=== PATIENT | male | born 1945 | race African-American/Black ===

== ENCOUNTER 2019-01-29 16:16 | Inpatient (IN) | payer OTHER ==
[2019-01-29 16:51] LABS: Bilirubin Negative (Negative); Blood, Urine Negative (Negative); Glucose, Urine (Dipstick) Negative (Negative); Leukocyte Negative (Negative); Nitrite Negative (Negative); Protein, Urine (Dipstick) Negative (Neg-Trace); Urobilinogen 0.2 mg/dL (Less than 2)
[2019-01-29 16:52] LABS: Clarity Clear (Clear)
[2019-01-29 16:56] LABS: Hemoglobin 6.2 g/dL (14.0-18.0); Mean Corpuscular HGB CONC 33.3 g/dL (32.0-36.0); Mean Corpuscular Hemoglobin 32.8 pg (27.0-31.0); Mean Corpuscular Volume 98.3 fL (78.0-98.0); Red Blood Cell (RBC) Count 1.88 mill/uL (4.70-6.10); White Blood Cell (WBC) Count 8.6 thou/uL (4.8-10.8)
--- NOTE | 2019-01-29 16:57 | RAD ---
SINGLE VIEW OF THE CHEST: Comparison: 06-21-10 History: Chest pain with exertion. FINDINGS: Single view of the chest shows an enlarged cardiomediastinal silhouette. The patient is status post s ternotomy. A pacemaker is seen with its tip in the right ventricle. There is no evidence of consolida tion, mass, or pleural effusion. IMPRESSION: Cardiomegaly. POS: C
[2019-01-29 17:01] LABS: INR-International Normal Ratio 3.4; PTT 43.2 SEC (22.9-36.1); Prothrombin Time 34.1 SEC (12.0-14.7)
[2019-01-29 17:23] LABS: ALT (SGPT) 10 U/L (8-55); AST (SGOT) 16 U/L (5-34); Albumin 3.5 g/dL (3.4-4.8); Alkaline Phosphatase 128 U/L (40-150); Anion Gap 10 mmol/L (10-20); BUN (Urea Nitrogen) 30 mg/dL (8.4-25.7); Bilirubin, Total 0.3 mg/dL (0.2-1.2); CK (CPK) 233 U/L (30-200); Calc. Creatinine Clearance 0 mL/min (70-130); Calcium 8.4 mg/dL (7.8-10.44); Carbon Dioxide 24 mmol/L (23-31); Chloride 103 mmol/L (98-107); Estimated GFR-MDRD 60; Globulin 3.1 g/dL (2.4-3.5); Glucose 122 mg/dL (83-110); Lipase 45 U/L (8-78); Potassium 3.4 mmol/L (3.5-5.1); Protein, Total 6.6 g/dL (5.8-8.1); Sodium 134 mmol/L (136-145)
[2019-01-29 17:31] LABS: #Eosinphils 0.2 thou/uL (0.0-0.7); #Lymphocytes 1.4 thou/uL (1.20-3.40); #Monocytes 0.7 thou/uL (0.11-0.59); #Neutrophils 6.3 thou/uL (1.40-6.50); %Basophils 0.4 % (0.0-1.0); %Eosinophils 2.1 % (0.0-10.0); %Lymphocytes 16.4 % (21.0-51.0); %Monocytes 7.8 % (0.0-10.0); %Neutrophils 73.4 % (42.0-75.0); Anisocytosis SLIGHT = 6-15 cells (100X) (0-5/hpf); Band 1 % (5-11); Eosinophils 2 % (0-10); Lymphocytes 5 % (21-51); MDiff Complete? YES; Mean Platelet Volume 7.1 fL (7.4-10.4); Monocytes 2 % (0-10); Neutrophil 90 % (42-75); Platelet Count 116 thou/uL (130-400); Platelet Morphology Comment Appears Decreased
[2019-01-29] MEDS ORDERED: Ondansetron PF 4 MG/2 ML Vial ONE (18:37)
[2019-01-29] MEDS ORDERED: Morphine 4 MG/ML VIAL ONE (18:37)
[2019-01-29 20:47] LABS: Troponin I Less than 0.010 ng/mL (< 0.028)
--- NOTE | 2019-01-29 20:49 | PDOC.FPRHP ---
- History of Present Illness Chief Complaint: Chest Pain History of Present Illness: 73 yo M says he woke up with worsening chest pain. He says he has been experiencing constant, heavy, throbbing chest pain for the past month, but this morning it worsened with radiation to the neck and left arm. He says his chest pain is 7/10 [address] he says the chest pain worsens. It is alleviated with rest. He is on medication, but he says they help very little. He does experience SOB with the chest pain. He has had blood in his stool over the last 2 years with 2-3 episodes spread months apart. Yesterday he says he had an episode of a large amount of blood, about a cup, in his stool and he has been having diarrhea since yesterday. Two years ago he had blood loss so severe that he recieved 4 units. He was seen by GI in [place] in July. He says they preformed a colonoscopy and EGD, but they did not find the source of bleeding. FOBT was positive. ED Course: In ED, he had a Hgb/Hct of 6.2/18.5. They are giving him 2 units of blood in the ED. Troponins in ED were negative. EKG shows Afib with controlled rate along with T wave inversion in V1 & V2. - Allergies/Adverse Reactions Allergies Allergy/AdvReac Type Severity Reaction Status Date / Time No Known Allergies Allergy Verified 01/29/19 23:31 - Home Medications Medication Instructions Recorded Confirmed Type Aspirin [Aspir-Low] 81 mg PO DAILY 01/29/19 01/29/19 History Atorvastatin Calcium [Lipitor] 40 mg PO HS 01/29/19 01/29/19 History Carvedilol 6.25 mg PO BID 01/29/19 01/29/19 History DULoxetine HCl 30 mg PO HS 01/29/19 01/29/19 History Ferrous Sulfate [Feosol] 325 mg PO TID 01/29/19 01/29/19 History Furosemide [Lasix] 40 mg PO BID 01/29/19 01/29/19 History Isosorbide Mononitrate [Isosorbide 60 mg PO DAILY 01/29/19 01/29/19 History Mononitrate ER] Lactulose 10 GM/15ML Oral Aleena 60 gm PO BID 01/29/19 01/29/19 History [Lactulose] Latanoprost/Pf [Latanoprost 0.005% 1 drop OP DAILY 01/29/19 01/29/19 History Eye Drop] Methylcellulose [Fiber Laxative] 1,000 mg PO DAILY 01/29/19 01/29/19 History Nitroglycerin 0.4 mg SL Q6HR 01/29/19 01/29/19 History Omeprazole 40 mg PO DAILY 01/29/19 01/29/19 History Probenecid 500 mg PO BID 01/29/19 01/29/19 History Spironolactone 25 mg PO DAILY 01/29/19 01/29/19 History Terazosin HCl 10 mg PO HS 01/29/19 01/29/19 History Timolol Maleate [Timolol Maleate 1 drop EA EYE BID 01/29/19 01/29/19 History 0.5% Ophth SolN] Warfarin Sodium 2.5 mg PO DAILY 01/29/19 01/29/19 History - History PMHx: ZECHARIAH, A fib, BPH, CHF, Glaucoma PSHx: Cath 2016, Double Bypass 2016, Remote hx of stents x2, Galbladder 10 years ago, Pacemaker 2016 FHx: Mom- GARRIDO (76, ), Sister & Dad- DM Social: No smoking, alcohol, or illicit drugs. - Review of Systems General: denies: fever/chills, night sweats Eyes: denies: vision changes ENT: denies: rhinorrhea Respiratory: reports: shortness of breath, exercise intolerance. denies: cough Cardiovascular: reports: chest pain. denies: paroxysmal nocturnal dyspnea, orthopnea Gastrointestinal: reports: diarrhea, GI bleeding. denies: nausea, vomiting, constipation, abdominal pain Genitourinary: denies: dysuria Skin: denies: rashes, lesions Musculoskeletal: denies: pain, tenderness Neurological: denies: numbness, weakness Psychological: denies: anxiety - Vital signs BP: [120/50] HR: [52] RR: [16] Tmax: [98.5] Pox: [100]% on [2L] Wt: [118 kg] - Physical Exam Constitutional: NAD HEENT: normocephalic and atraumatic, PERRLA, grossly normal vision, grossly normal hearing, oropharynx clear, other (mucous membranes slightly dry) Neck: supple, trachea midline Chest: no-tender to palpation Heart: normal S1/S2, pulses present -Heart: Heart rate was in the 50s. His pacer is set to 50. Lungs: CTAB, no respiratory distress, good air movement Abdomen: soft, non-tender, bowel sounds present Musculoskeletal: normal structure, normal tone Neurological: no focal deficit Skin: no rash/lesions, good turgor Heme/Lymphatic: no unusual bruising or bleeding Psychiatric: normal mood and affect Additional comment: FOBT preformed was positive. FMR H&P: Results - Labs Result Diagrams: 01/29/19 16:40 01/29/19 16:40 Lab results: WBC 8.6 thou/uL (4.8-10.8) 01/29/19 16:40 Hgb 6.2 g/dL (14.0-18.0) L 01/29/19 16:40 Hct 18.5 % (42.0-52.0) L 01/29/19 16:40 MCV 98.3 fL (78.0-98.0) H 01/29/19 16:40 Plt Count 116 thou/uL (130-400) L 01/29/19 16:40 Neutrophils % 73.4 % (42.0-75.0) 01/29/19 16:40 Band Neuts % (Manual) 1 % (5-11) L 01/29/19 16:40 Sodium 134 mmol/L (136-145) L 01/29/19 16:40 Potassium 3.4 mmol/L (3.5-5.1) L 01/29/19 16:40 Chloride 103 mmol/L (98-107) 01/29/19 16:40 Carbon Dioxide 24 mmol/L (23-31) 01/29/19 16:40 BUN 30 mg/dL (8.4-25.7) H 01/29/19 16:40 Creatinine 1.41 mg/dL (0.7-1.3) H 01/29/19 16:40 Glucose 122 mg/dL (83-110) H 01/29/19 16:40 Calcium 8.4 mg/dL (7.8-10.44) 01/29/19 16:40 Total Bilirubin 0.3 mg/dL (0.2-1.2) 01/29/19 16:40 AST 16 U/L (5-34) 01/29/19 16:40 ALT 10 U/L (8-55) 01/29/19 16:40 Alkaline Phosphatase 128 U/L (40-150) 01/29/19 16:40 Creatine Kinase 233 U/L (30-200) H 01/29/19 16:40 B-Natriuretic Peptide 222.5 pg/mL (0-100) H 01/29/19 16:40 Serum Total Protein 6.6 g/dL (5.8-8.1) 01/29/19 16:40 Albumin 3.5 g/dL (3.4-4.8) 01/29/19 16:40 Lipase 45 U/L (8-78) 01/29/19 16:40 Urine Ketones Negative mg/dL (Negative) 01/29/19 16:37 Urine Blood Negative (Negative) 01/29/19 16:37 Urine Nitrite Negative (Negative) 01/29/19 16:37 Ur Leukocyte Esterase Negative (Negative) 01/29/19 16:37 - EKG Interpretation EKG: A fib rate controlled with T wave inversions in V1 & V2. - Radiology Interpretation Chest x-ray Additional comment: Cardiomegaly FMR H&P: A/P - Problem List (1) Chronic anemia Current Visit: Yes Status: Acute Priority: High Code(s): D64.9 - ANEMIA, UNSPECIFIED Comment: Hgb/Hct: 6.2/18.5 (2) GI bleed Current Visit: Yes Onset Date: Unknown Status: Chronic Priority: High Code(s): K92.2 - GASTROINTESTINAL HEMORRHAGE, UNSPECIFIED Qualifiers: GI bleed type/associated pathology: melena Qualified Code(s): K92.1 - Melena (3) Exertional angina Current Visit: Yes Status: Acute Priority: High Code(s): I20.8 - OTHER FORMS OF ANGINA PECTORIS (4) CHF (congestive heart failure) Current Visit: Yes Status: Chronic Priority: Medium Code(s): I50.9 - HEART FAILURE, UNSPECIFIED Qualifiers: Heart failure type: unspecified Heart failure chronicity: chronic Qualified Code(s): I50.9 - Heart failure, unspecified (5) CAD (coronary artery disease) Current Visit: Yes Status: Chronic Priority: Medium Code(s): I25.10 - ATHSCL HEART DISEASE OF [place] CORONARY ARTERY W/O ANG PCTRS Qualifiers: Coronary Disease-Associated Artery/Lesion type: bypass graft Associated angina: with stable angina (6) A-fib Current Visit: Yes Status: Chronic Priority: Low Code(s): I48.91 - UNSPECIFIED ATRIAL FIBRILLATION Qualifiers: Atrial fibrillation type: persistent Qualified Code(s): I48.1 - Persistent atrial fibrillation (7) Glaucoma Current Visit: Yes Status: Chronic Priority: Low Code(s): H40.9 - UNSPECIFIED GLAUCOMA Qualifiers: Glaucoma type: unspecified Laterality: bilateral Qualified Code(s): H40.9 - Unspecified glaucoma (8) ZECHARIAH (obstructive sleep apnea) Current Visit: Yes Status: Chronic Priority: Low Code(s): G47.33 - OBSTRUCTIVE SLEEP APNEA (ADULT) (PEDIATRIC) (9) BPH (benign prostatic hyperplasia) Current Visit: Yes Status: Chronic Priority: Low Code(s): N40.0 - BENIGN PROSTATIC HYPERPLASIA WITHOUT LOWER URINRY TRACT SYMP Qualifiers: Lower urinary tract symptom presence: symptoms absent Qualified Code(s): N40.0 - Benign prostatic hyperplasia without lower urinary tract symptoms - Plan -GI bleed: Will transfuse and check H&H 4H after. GI prophylaxis. Will consult GI in am. -Hx of HF and receiving blood so hold fluids. Give 20 mg Lasix of BP permits after each unit. -Chest pain/CHF/CAD: will trend Troponin. Receiving nitro paste. Will receive his home meds. Will monitor on Telemetry. -BPH: continue home meds. -A fib: continue home meds. -ZECHARIAH: monitor O2 sats. -Glaucoma: Will monitor. FMR H&P: Upper Level - Pertinent history 73 yo M w/hx of CAD s/p CABG, HTN, CHF, glaucoma, BPH, chronic blood loss anemia , and depression here with complaint of 1 month of exertional chest pain which has been progressively worsening over the past 48 hours. He states that today he could not walk around the room without chest pain. He has a recent hx of anemia thought to be from a GI source, however a upper and lower scope in Jul of this year was unable to find a source. In the ED his Hb was found to be 6.2 and he was transfused 2u PRBC. Initial trop was negative. See ad operations intern note for full ROS, PE, labs, and vitals ROS General denies fever or chills HEENT denies changes in vision CV Complains of substernal CP similar to previous [place] Resp denies SOB or cough GI complains of periodic bloody stools Neuro denies numbness or weakness - Pertinent findings PE General A&O x4, no acute distress HEENT NCAT CV RRR, no murmur Resp CTA b/l Abd non tender, no distension, normal BS. Neuro no focal deficits - Plan Date/Time: 01/29/192039 I, Naren Jamison, DO, have evaluated this patient and agree with findings/plan as outlined by ad operations intern resident. Pertinent changes/additions are listed here. 1. Symptomatic anemia - most likely source of chest pain given no EKG changes and negative trops. Appears that source is GI. - Recheck Hb following 2u PRBC - consult GI in morning - continue PO iron 2. GI bleed - as above. Currently hemodynamically stable 3. JYOTI vs CKD - unclear as to his baseline. Trend in am 4. A fib - current rate controlled. Continue home beta chyna - hold warfarin dt GI bleed. Current INR is 3.4 5. CAD - restart home meds 6. GERD - home meds 7. Gout - home meds 8. Glaucoma - home drops
[2019-01-30] MEDS ORDERED: Ondansetron ODT 4 MG TAB PO PRN (00:05)
[2019-01-30] MEDS ORDERED: Famotidine 20 MG TAB PO SCH (00:15)
[2019-01-30] MEDS ORDERED: Furosemide 20 MG TAB PO SCH (00:15)
[2019-01-30 00:20] LABS: Troponin I Less than 0.010 ng/mL (< 0.028)
[2019-01-30 00:21] VITALS: BMI 35.9
--- NOTE | 2019-01-30 05:32 | PDOC.FM ---
- Subjective Subjective: Patient states He had a workup X1.5 years ago for the GI bleeding and nothing was found upon colonoscopy or pill camera. He denies any history of diverticulitis, colon inflammation or hemorrhoids. Patient states he feels better after receiving the blood transfusion. He is stable this morning. - Objective MAR Reviewed: Yes Vital Signs & Weight: Vital Signs (12 hours) Temp Pulse Pulse Resp BP BP Pulse Ox 01/30/19 03:16 97.9 F 50 L 22 H 112/54 L 95 01/30/19 00:47 98.2 F 56 L 20 109/52 L 98 01/30/19 00:32 97.9 F 61 21 H 107/53 L 98 01/30/19 00:24 97 01/29/19 22:47 98.5 F 52 L 20 123/58 L 97 Weight Weight 116.936 kg I&O: 01/28/19 01/29/19 01/30/19 06:59 06:59 06:59 Intake Total 350 Balance 350 Result Diagrams: 01/30/19 05:14 01/30/19 05:14 EKG Reviewed by me: Yes (A. fib) Radiology Reviewed by me: Yes (CXR cardiomegaly) Phys Exam - Physical Examination Constitutional: NAD HEENT: PERRLA, moist MMs, sclera anicteric conjunctival pallor Neck: no nodes, no JVD, supple Respiratory: no wheezing, no rales, no rhonchi, clear to auscultation bilateral Cardiovascular: RRR, no rub systolic murmur loudes over aortic valve, Grade 2/6 Gastrointestinal: soft, no distention, positive bowel sounds Tenderness to epigastric area Musculoskeletal: pulses present, edema present Psychiatric: normal affect, A&O x 3 Skin: no rash, normal turgor, cap refill <2 seconds Dx/Plan (1) Symptomatic anemia Code(s): D64.9 - ANEMIA, UNSPECIFIED Status: Acute (2) Chronic anemia Code(s): D64.9 - ANEMIA, UNSPECIFIED Status: Acute (3) GI bleed Code(s): K92.2 - GASTROINTESTINAL HEMORRHAGE, UNSPECIFIED Status: Chronic Qualifiers: GI bleed type/associated pathology: melena Qualified Code(s): K92.1 - Melena (4) Exertional angina Code(s): I20.8 - OTHER FORMS OF ANGINA PECTORIS Status: Acute (5) CAD (coronary artery disease) Code(s): I25.10 - ATHSCL HEART DISEASE OF [place] CORONARY ARTERY W/O ANG PCTRS Status: Chronic Qualifiers: Coronary Disease-Associated Artery/Lesion type: bypass graft Associated angina: with stable angina (6) A-fib Code(s): I48.91 - UNSPECIFIED ATRIAL FIBRILLATION Status: Chronic Qualifiers: Atrial fibrillation type: persistent Qualified Code(s): I48.1 - Persistent atrial fibrillation (7) CHF (congestive heart failure) Code(s): I50.9 - HEART FAILURE, UNSPECIFIED Status: Chronic Qualifiers: Heart failure type: unspecified Heart failure chronicity: chronic Qualified Code(s): I50.9 - Heart failure, unspecified (8) Glaucoma Code(s): H40.9 - UNSPECIFIED GLAUCOMA Status: Chronic Qualifiers: Glaucoma type: unspecified Laterality: bilateral Qualified Code(s): H40.9 - Unspecified glaucoma (9) ZECHARIAH (obstructive sleep apnea) Code(s): G47.33 - OBSTRUCTIVE SLEEP APNEA (ADULT) (PEDIATRIC) Status: Chronic (10) BPH (benign prostatic hyperplasia) Code(s): N40.0 - BENIGN PROSTATIC HYPERPLASIA WITHOUT LOWER URINRY TRACT SYMP Status: Chronic Qualifiers: Lower urinary tract symptom presence: symptoms absent Qualified Code(s): N40.0 - Benign prostatic hyperplasia without lower urinary tract symptoms - Plan Plan: 73 y/o male admitted for treatment of symptomatic anemia with angina, secondary to a GI bleed. 1. Symptomatic anemia -Most likely cause is from acute blood loss secondary to a GI bleed. -Patient has exertional angina and shortness of breath - Transfuse blood and recheck H&H. -Patient has received X2 units of blood this morning. -Hgb 6.2--> 7.8 2. Exertional angina -Trops negative X3 -EKG: A. fib 3. GI bleed -most likely secondary to coagulopathy caused by warfarin -consult GI -continue blood transfusions until Hgb >7 -INR 3.5, hold warfarin -consider Vit K if bleeding persists. 4. CHF -cardiomegaly on CXR -Stable at this time 5. CAD -S/P X2 CABG, and X2 stents -Stable at this time, -trops, No ST segment changes 6. A. Fib - INR 3.5 -Hold warfarin until INR in 2-3 -Pt was in A. Fib throughout the night, with a rate in the 50's. Few PVC's 7. ZECHARIAH -stable, continue home therapy 8. Glaucoma -stable, continue home therapy 9. BPH -stable continue home therapy 10. Full Code Disposition: Stable, Will await GI consultation for further recommendations.
[2019-01-30 05:41] LABS: #Eosinphils 0.3 thou/uL (0.0-0.7); #Lymphocytes 1.3 thou/uL (1.20-3.40); #Monocytes 0.8 thou/uL (0.11-0.59); %Basophils 0.4 % (0.0-1.0); %Eosinophils 3.5 % (0.0-10.0); %Lymphocytes 15.8 % (21.0-51.0); %Monocytes 9.5 % (0.0-10.0); %Neutrophils 70.8 % (42.0-75.0); Hemoglobin 7.8 g/dL (14.0-18.0); Mean Corpuscular HGB CONC 33.5 g/dL (32.0-36.0); Mean Corpuscular Hemoglobin 32.1 pg (27.0-31.0); Mean Corpuscular Volume 95.9 fL (78.0-98.0); Mean Platelet Volume 7.4 fL (7.4-10.4); Platelet Count 114 thou/uL (130-400); RBC Distribution Width 15.9 % (11.5-14.5); Red Blood Cell (RBC) Count 2.41 mill/uL (4.70-6.10); White Blood Cell (WBC) Count 8.4 thou/uL (4.8-10.8)
[2019-01-30 05:59] LABS: ALT (SGPT) 8 U/L (8-55); AST (SGOT) 16 U/L (5-34); Albumin 3.5 g/dL (3.4-4.8); Alkaline Phosphatase 115 U/L (40-150); Anion Gap 13 mmol/L (10-20); BUN (Urea Nitrogen) 27 mg/dL (8.4-25.7); Bilirubin, Total 0.3 mg/dL (0.2-1.2); Calc. Creatinine Clearance 86 mL/min (70-130); Calcium 8.7 mg/dL (7.8-10.44); Carbon Dioxide 23 mmol/L (23-31); Chloride 107 mmol/L (98-107); Estimated GFR-MDRD 67; Glucose 110 mg/dL (83-110); Potassium 3.5 mmol/L (3.5-5.1); Protein, Total 6.5 g/dL (5.8-8.1); Sodium 139 mmol/L (136-145)
[2019-01-30] MEDS: Terazosin HCl 5 MG CAP PO SCH (09:33)
[2019-01-30] MEDS: Timolol 0.5% Ophth Soln 5 ml Bottle EA EYE SCH ×2 (09:33→20:19)
[2019-01-30] MEDS: Spironolactone 25 MG TAB PO SCH (09:33)
[2019-01-30] MEDS: Acetaminophen 325 MG TAB PO PRN (09:33)
[2019-01-30] MEDS: Furosemide 40 MG TAB PO SCH ×2 (09:33→13:40)
[2019-01-30] MEDS: Latanoprost 0.005% Ophth Soln 2.5 ml Bottle EA EYE SCH (09:40)
--- NOTE | 2019-01-30 12:19 | PRG ---
DATE OF SERVICE: 01/30/2019 Mr. Null is a pleasant 73-year-old black man who was admitted with some worsening chest pain, described as heavy and throbbing for at least the last month. He has also noted some bloody stools over the last 2 years with previous colonoscopy and EGD not revealing any significant source of the bleeding. When he presented to our ER for evaluation, he was found to have a hemoglobin of 6.2. He was given 2 units of blood in the ER. He also has a very deep T-wave inversions in his precordial leads. While these certainly are likely exacerbated by the anemia, concerned about the possibility of coronary artery disease. I think once we get him stabilized from an anemia standpoint and seen by GI, we should proceed with stress testing. We are awaiting the input from the GI Service. Job ID: [id number]
[2019-01-30 12:28] LABS: Iron 39 ug/dL (65-175); Iron Binding Capacity, Total 231 mcg/dL (261-462)
[2019-01-30 13:09] LABS: Folate (Folic Acid) 13.4 ng/mL (7.0-31.4)
[2019-01-30 13:33] LABS: Anisocytosis SLIGHT = 6-15 cells (100X) (0-5/hpf); Band 2 % (5-11); Eosinophils 2 % (0-10); Hemoglobin 7.5 g/dL (14.0-18.0); Hypochromia SLIGHT = 6-15 cells (100X) (0-5/hpf); Lymphocytes 2 % (21-51); MDiff Complete? YES; Mean Corpuscular HGB CONC 32.3 g/dL (32.0-36.0); Mean Corpuscular Hemoglobin 30.9 pg (27.0-31.0); Mean Corpuscular Volume 95.8 fL (78.0-98.0); Monocytes 6 % (0-10); Neutrophil 86 % (42-75); Platelet Count 102 thou/uL (130-400); Platelet Morphology Comment Appears Decreased; RBC Distribution Width 16.3 % (11.5-14.5); Red Blood Cell (RBC) Count 2.44 mill/uL (4.70-6.10); White Blood Cell (WBC) Count 8.4 thou/uL (4.8-10.8)
[2019-01-30] MEDS ORDERED: Phytonadione 10 MG/ML AMP SC SCH (19:30)
[2019-01-30] MEDS ORDERED: DULoxetine 30 MG CAP PO SCH (22:00)
--- NOTE | 2019-01-30 22:05 | CON ---
DATE OF CONSULTATION: 01/30/2019 REASON FOR CONSULTATION: Melena, symptomatic anemia. CONSULTING PROVIDER: Keyshawn Bustos MD. HISTORY OF PRESENT ILLNESS: The patient is a 73-year-old male with past medical history of obstructive sleep apnea, atrial fibrillation, on chronic warfarin, BPH, congestive heart failure and glaucoma, presenting with complaints of melena and shortness of breath. He states that he was in his usual state of health until approximately 5-6 days ago when he had acute onset of black colored stools. They were characterized as liquid in consistency, having approximately 5-6 of these black liquid bowel movements per day without any difficulty with defecation. This was associated with increased periumbilical pain that was characterized as an aching type sensation, was nonradiating. It would occur 2 to 3 times per day, lasting 5-10 minutes in duration and reach a severity of 7 to 8/10. Over this same time period, he also endorses increased throbbing chest pain that has been present for the last month with associated increased shortness of breath and dyspnea on exertion that has worsened over the last week. With the increased chest pain, shortness of breath and the black color stools, he was ultimately transferred to [facility] ER from group home for further evaluation. On evaluation, he was noted to have a significantly decreased H and H, admitted to the hospital for further evaluation. Currently, he denies any nausea, vomiting, fevers, chills, hematochezia, hematemesis, dysphagia, odynophagia, weight loss. Of note, the patient was admitted to [facility] approximately 18 months ago for very similar circumstances when he was having black colored stools and symptomatic anemia. Per patient, he ultimately underwent EGD, colonoscopy, and ultimately capsule endoscopy with negative findings on all three imaging modalities. REVIEW OF SYSTEMS: A 10-category review of systems was obtained with all responses negative except for the pertinent positives as listed in HPI. PAST MEDICAL HISTORY: As per HPI. PAST SURGICAL HISTORY: Cardiac catheterization in 2017, CABG x2 with coronary artery stent placement prior to CABG, cholecystectomy, and pacemaker placement in 2017. FAMILY HISTORY: Denies any GI malignancies. SOCIAL HISTORY: Denies any tobacco, alcohol, or illicit drug use. OUTPATIENT MEDICATIONS: Reviewed. ALLERGIES: NO KNOWN DRUG ALLERGIES. PHYSICAL EXAMINATION: VITAL SIGNS: Temperature 97.8, pulse 52, blood pressure 113/57, respiratory rate 16, saturating 94% on 1 L nasal cannula. GENERAL: The patient was lying in bed, in no acute distress. Alert and oriented x4. HEENT: Normocephalic and atraumatic. NECK: Supple. No JVD or scleral icterus noted. CARDIOVASCULAR: Bradycardic rate, but regular rhythm with no discernible murmurs, gallops, or rubs. RESPIRATORY: Clear to auscultation bilaterally with no discernible wheezes or rales. ABDOMEN: Normoactive bowel sounds. Soft, nondistended. Tenderness to palpation in the periumbilical region only. EXTREMITIES: No cyanosis, clubbing, or edema. LABORATORY DATA: CBC with a white blood cell count of 8.4, hemoglobin 7.8, hematocrit 23.2, platelets 114. INR 3.4. BNP 222. Chemistry with a sodium of 139, potassium 3.5, chloride 107, CO2 of 23, BUN 27, creatinine 1.27, glucose 110, AST 16, ALT 8, alkaline phosphatase 115, total bilirubin 0.3, albumin 3.5, lipase 45, creatine kinase 233. IMAGING DATA: Chest x-ray obtained on January 29, 2019, showed evidence of enlarged cardiomediastinal silhouette consistent with cardiomegaly with pacemaker seen with the tip in the right ventricle. No other evidence of consolidation, mass, or pleural effusion was seen. ASSESSMENT AND PLAN: The patient is a 73-year-old male with past medical history of obstructive sleep apnea, atrial fibrillation, on chronic anticoagulation, benign prostatic hypertrophy, congestive heart failure, and glaucoma, presenting with symptomatic anemia and melena. Melena. The patient is presenting with a history of obscured gastrointestinal bleed approximately 18 months ago that was worked up at [facility] with EGD, colonoscopy and capsule endoscopy at that time and had relatively negative findings per patient. Records from that hospital stay are not available for review at this time. However, his current clinical status is very similar to his admission at that time, now having approximately 5-6 liquid black bowel movements per day over the last week and associated with increased periumbilical abdominal pain. On admission, he was noted to have a significantly decreased H and H, further lending credence to symptomatic anemia, which could cause his chest pain, shortness of breath and dyspnea on exertion. He is currently on anticoagulation with a supratherapeutic INR of 3.4, which could be further contributing to his current clinical situation and could be potentially bleeding from any mucosal surface. At this time the differential could include esophagitis, gastritis, duodenitis, arteriovenous malformation, Dieulafoy lesion and/or GI neoplasm. Given the negative colonoscopy approximately 18 months ago and the appearance of melena currently, the likelihood of a lower GI tract bleeding is unlikely, although still within the differential, but the patient would probably benefit more from an EGD at this time. RECOMMENDATIONS: 1. We would continue to trend H and H and transfuse as necessary to maintain an H and H of 7/21. 2. Continue to monitor clinically for signs of active GI bleeding. 3. We would continue patient on pantoprazole 40 mg b.i.d. for possible upper GI bleed. 4. We would attempt to reverse anticoagulation with vitamin K in light of a supratherapeutic INR related to warfarin use. 5. We would place the patient n.p.o. at midnight in preparation for upper endoscopy tomorrow morning. 6. We will continue to follow. Please call with any questions. Job ID: [id number]
--- NOTE | 2019-01-31 05:46 | PDOC.FM ---
- Objective Vital Signs & Weight: Vital Signs (12 hours) Temp Pulse Resp BP Pulse Ox 01/30/19 23:53 97.9 F 50 L 16 106/55 L 97 01/30/19 19:23 98.3 F 50 L 16 123/58 L 96 Weight Weight 114.305 kg I&O: 01/29/19 01/30/19 01/31/19 06:59 06:59 06:59 Intake Total 590 780 Output Total 500 1325 Balance 90 -545 Result Diagrams: 01/30/19 11:54 01/30/19 05:14 Dx/Plan (1) Symptomatic anemia Code(s): D64.9 - ANEMIA, UNSPECIFIED Status: Acute (2) Chronic anemia Code(s): D64.9 - ANEMIA, UNSPECIFIED Status: Acute (3) GI bleed Code(s): K92.2 - GASTROINTESTINAL HEMORRHAGE, UNSPECIFIED Status: Chronic Qualifiers: GI bleed type/associated pathology: melena Qualified Code(s): K92.1 - Melena (4) Exertional angina Code(s): I20.8 - OTHER FORMS OF ANGINA PECTORIS Status: Acute (5) CAD (coronary artery disease) Code(s): I25.10 - ATHSCL HEART DISEASE OF [place] CORONARY ARTERY W/O ANG PCTRS Status: Chronic Qualifiers: Coronary Disease-Associated Artery/Lesion type: bypass graft Associated angina: with stable angina (6) A-fib Code(s): I48.91 - UNSPECIFIED ATRIAL FIBRILLATION Status: Chronic Qualifiers: Atrial fibrillation type: persistent Qualified Code(s): I48.1 - Persistent atrial fibrillation (7) CHF (congestive heart failure) Code(s): I50.9 - HEART FAILURE, UNSPECIFIED Status: Chronic Qualifiers: Heart failure type: unspecified Heart failure chronicity: chronic Qualified Code(s): I50.9 - Heart failure, unspecified (8) Glaucoma Code(s): H40.9 - UNSPECIFIED GLAUCOMA Status: Chronic Qualifiers: Glaucoma type: unspecified Laterality: bilateral Qualified Code(s): H40.9 - Unspecified glaucoma (9) ZECHARIAH (obstructive sleep apnea) Code(s): G47.33 - OBSTRUCTIVE SLEEP APNEA (ADULT) (PEDIATRIC) Status: Chronic (10) BPH (benign prostatic hyperplasia) Code(s): N40.0 - BENIGN PROSTATIC HYPERPLASIA WITHOUT LOWER URINRY TRACT SYMP Status: Chronic Qualifiers: Lower urinary tract symptom presence: symptoms absent Qualified Code(s): N40.0 - Benign prostatic hyperplasia without lower urinary tract symptoms - Plan Plan: 1. Symptomatic anemia -Most likely cause is from acute blood loss secondary to a GI bleed. - -Patient has exertional angina and shortness of breath - Transfuse blood and recheck H&H. -Patient has received X2 units of blood this morning. -Hgb 6.2--> 7.8 2. Exertional angina -Trops negative X3 -EKG: A. fib 3. GI bleed -most likely secondary to coagulopathy caused by warfarin -consult GI -continue blood transfusions until Hgb >7 -INR 3.5, hold warfarin -consider Vit K if bleeding persists. 4. CHF -cardiomegaly on CXR -Stable at this time 5. CAD -S/P X2 CABG, and X2 stents -Stable at this time, -trops, No ST segment changes 6. A. Fib - INR 3.5 -Hold warfarin until INR in 2-3 -Pt was in A. Fib throughout the night, with a rate in the 50's. Few PVC's 7. ZECHARIAH -stable, continue home therapy 8. Glaucoma -stable, continue home therapy 9. BPH -stable continue home therapy 10. Full Code Disposition: Stable, Will await GI consultation for further recommendations.
--- NOTE | 2019-01-31 05:54 | PDOC.FM ---
- Subjective Subjective: Patient states he has not had any more episodes of rectal bleeding. He denies any BM since the bloody stool the day before admission. Will go for upper endoscopy today. Tele showed coarse A. fib with a rate in the 50's overnight. - Objective MAR Reviewed: Yes Vital Signs & Weight: Vital Signs (12 hours) Temp Pulse Resp BP Pulse Ox 01/30/19 23:53 97.9 F 50 L 16 106/55 L 97 01/30/19 19:23 98.3 F 50 L 16 123/58 L 96 Weight Weight 114.305 kg I&O: 01/29/19 01/30/19 01/31/19 06:59 06:59 06:59 Intake Total 590 780 Output Total 500 1325 Balance 90 -545 Result Diagrams: 01/31/19 05:38 01/30/19 05:14 Additional Labs: INR 3.1 Phys Exam - Physical Examination Constitutional: NAD HEENT: PERRLA, moist MMs, sclera anicteric Neck: no nodes, no JVD, supple, full ROM Respiratory: no wheezing, no rales, no rhonchi, clear to auscultation bilateral Cardiovascular: RRR, no rub 2/6 systolic ejection murmur Gastrointestinal: soft, non-tender, no distention, positive bowel sounds Musculoskeletal: pulses present, edema present Neurological: non-focal Psychiatric: normal affect, A&O x 3 Skin: no rash, normal turgor, cap refill <2 seconds Dx/Plan (1) Symptomatic anemia Code(s): D64.9 - ANEMIA, UNSPECIFIED Status: Acute (2) Chronic anemia Code(s): D64.9 - ANEMIA, UNSPECIFIED Status: Acute (3) GI bleed Code(s): K92.2 - GASTROINTESTINAL HEMORRHAGE, UNSPECIFIED Status: Chronic Qualifiers: GI bleed type/associated pathology: melena Qualified Code(s): K92.1 - Melena (4) Exertional angina Code(s): I20.8 - OTHER FORMS OF ANGINA PECTORIS Status: Acute (5) CAD (coronary artery disease) Code(s): I25.10 - ATHSCL HEART DISEASE OF [place] CORONARY ARTERY W/O ANG PCTRS Status: Chronic Qualifiers: Coronary Disease-Associated Artery/Lesion type: bypass graft Associated angina: with stable angina (6) A-fib Code(s): I48.91 - UNSPECIFIED ATRIAL FIBRILLATION Status: Chronic Qualifiers: Atrial fibrillation type: persistent Qualified Code(s): I48.1 - Persistent atrial fibrillation (7) CHF (congestive heart failure) Code(s): I50.9 - HEART FAILURE, UNSPECIFIED Status: Chronic Qualifiers: Heart failure type: unspecified Heart failure chronicity: chronic Qualified Code(s): I50.9 - Heart failure, unspecified (8) Glaucoma Code(s): H40.9 - UNSPECIFIED GLAUCOMA Status: Chronic Qualifiers: Glaucoma type: unspecified Laterality: bilateral Qualified Code(s): H40.9 - Unspecified glaucoma (9) ZECHARIAH (obstructive sleep apnea) Code(s): G47.33 - OBSTRUCTIVE SLEEP APNEA (ADULT) (PEDIATRIC) Status: Chronic (10) BPH (benign prostatic hyperplasia) Code(s): N40.0 - BENIGN PROSTATIC HYPERPLASIA WITHOUT LOWER URINRY TRACT SYMP Status: Chronic Qualifiers: Lower urinary tract symptom presence: symptoms absent Qualified Code(s): N40.0 - Benign prostatic hyperplasia without lower urinary tract symptoms - Plan Plan: 1. Symptomatic anemia; stable and improved -Most likely cause is from acute blood loss anemia secondary to a GI bleed. -Patient has exertional angina and shortness of breath, improving s/p 2 units pRBCs on 01/30. -Hgb 6.2--> 7.8 --> 7.5--> 7.7; stable -INR 3.5 (01/30)--> 3.1 today -Plt 115 -Vit B12: 1243, Folate: 13.40 -Iron: 39, TIBC 231, Ferritin: 88.27 2. Exertional angina -Trops negative X3 -EKG: A. fib 3. GI bleed -most likely secondary to coagulopathy caused by warfarin -Sultz recommended to trend H&H and transfuse as necessary to keep hgb stable. monitor for active GI bleeding. Continue Pantoprazole 40 mg BID, in case of upper GI bleed, Upper EGD to be done this morning. Patient NPO since midnight. Consider Vit K if GI bleeding continues. -hold warfarin 4. CHF -cardiomegaly on CXR -Stable at this time 5. CAD -S/P X2 CABG, and X2 stents -Stable at this time, negative trops, No ST segment changes 6. A. Fib - INR 3.5 (01/30)--> 3.1 today -Hold warfarin 7. ZECHARIAH -stable, continue home therapy 8. Glaucoma -stable, continue home therapy 9. BPH -stable continue home therapy 10. Full Code Disposition: Stable, GI performing upper and lower endoscopy to work up GI bleed. Addendum - Attending - Attending Attestation Date/Time: 01/31/19 2030 I personally evaluated the patient and discussed the management with Dr. Braga. I agree with the History, Examination, Assessment and Plan documented above with any addition or exceptions noted below. Patient here for acute on chronic anemia suspected 2/2 blood loss in the setting of melena a few days ago. He also has supratherapeutic INR that is s/p VitK from GI. Anticipate an unpredictable and slow decline in INR. If he has requirement for any further PRBC transfusion, will administer FFP as well that will help with his INR. Plan from GI standpoint is EGD once INR lower. Continue Protonix at this time. He also has thrombocytopenia and is on lactulose and Lasix that may suggest some liver disease that he does not know about. Will plan Hepatitis studies and possibly liver u/s if needed. Continue to trend H/H and await EGD.
[2019-01-31 06:05] LABS: #Eosinphils 0.3 thou/uL (0.0-0.7); #Monocytes 0.8 thou/uL (0.11-0.59); #Neutrophils 5.5 thou/uL (1.40-6.50); %Basophils 0.1 % (0.0-1.0); %Eosinophils 3.4 % (0.0-10.0); %Lymphocytes 13.6 % (21.0-51.0); %Monocytes 10.7 % (0.0-10.0); %Neutrophils 72.2 % (42.0-75.0); Hemoglobin 7.7 g/dL (14.0-18.0); Mean Corpuscular HGB CONC 32.7 g/dL (32.0-36.0); Mean Corpuscular Hemoglobin 31.4 pg (27.0-31.0); Mean Platelet Volume 7.2 fL (7.4-10.4); Platelet Count 115 thou/uL (130-400); RBC Distribution Width 16.5 % (11.5-14.5); Red Blood Cell (RBC) Count 2.46 mill/uL (4.70-6.10); White Blood Cell (WBC) Count 7.6 thou/uL (4.8-10.8)
[2019-01-31 06:06] LABS: INR-International Normal Ratio 3.1; Prothrombin Time 31.8 SEC (12.0-14.7)
[2019-01-31] MEDS ORDERED: Famotidine 20 MG TAB PO SCH (09:00)
[2019-01-31] MEDS: Terazosin HCl 5 MG CAP PO SCH (09:05)
[2019-01-31] MEDS: Spironolactone 25 MG TAB PO SCH (09:05)
[2019-01-31] MEDS: Latanoprost 0.005% Ophth Soln 2.5 ml Bottle EA EYE SCH (09:05)
[2019-01-31] MEDS: Furosemide 40 MG TAB PO SCH ×2 (09:05→14:31)
[2019-01-31] MEDS: Timolol 0.5% Ophth Soln 5 ml Bottle EA EYE SCH ×2 (09:06→21:57)
[2019-01-31] MEDS ORDERED: Phytonadione 10 MG/ML AMP SC SCH (10:30)
[2019-01-31] MEDS: Acetaminophen 325 MG TAB PO PRN (11:12)
--- NOTE | 2019-01-31 11:46 | PQF ---
CLINICAL DOCUMENTATION IMPROVEMENT CLARIFICATION FORM: ICD-10 Updated PLEASE DO AN ADDENDUM TO THE PROGRESS NOTE WITH ANY DOCUMENTATION UPDATES OR ADDITIONS AND CARRY THROUGH TO DC SUMMARY. THANK YOU. DATE: 01/31/19 ATTN: DR. GROVES Please exercise your independent, professional judgment in responding to the clarification form. Clinical indicators are provided on the bottom of this form for your review Please check appropriate box(s): HEART FAILURE: A. TYPE: [ ] Systolic / HFrEF [ ] Diastolic / HFpEF [ ] Combined Systolic / Diastolic [ ] Other diagnosis [ x ] Unable to determine. Echo not available for evaluation at this time. In addition, please specify: Present on Admission (POA): [ x ] Yes [ ] No [ ] Unable to determine For continuity of documentation, please document condition throughout progress notes and discharge summary. Thank You. CLINICAL INDICATORS - SIGNS / SYMPTOMS / LABS PROGRESS NOTE 01/31: "CONGESTIVE HEART FAILURE, CHRONIC" BNP 222.5 RISKS: HTN H/O CAD TREATMENT: CARDIAC MONITORING LASIX (01/30-PRESENT) ALDACTONE (01/30-PRESENT) (This form is maintained as a part of the permanent medical record) 2014 [employer]. All Rights Reserved [email or web address] Office: [phone] [facility]
--- NOTE | 2019-01-31 13:13 | PRG ---
DATE OF SERVICE: 01/31/2019 REASON FOR CONSULTATION: Melena, symptomatic anemia. SUBJECTIVE: Overnight, the patient experienced no acute events or problems with no further episodes of melena or hematochezia since admission. He also states he has not had a bowel movement in over 24 hours. He was currently sitting at bedside at the time of this interview eating a solid diet without difficulty. Otherwise, he states that he is doing well with no nausea, vomiting, fevers, chills, GI bleeding, odynophagia, or weight loss. OBJECTIVE: VITAL SIGNS: Temperature 98.1, pulse 56, blood pressure 123/57, respiratory rate 18, saturating 96% on 1 L nasal cannula. GENERAL: The patient was sitting at bedside, in no acute distress. Alert and oriented x4. CARDIOVASCULAR: Bradycardic rate, but regular rhythm. RESPIRATORY: Clear to auscultation bilaterally. ABDOMEN: Normoactive bowel sounds. Soft, nontender, and nondistended. EXTREMITIES: No cyanosis, clubbing, or edema. LABORATORY DATA: CBC with a white blood cell count of 7.6, hemoglobin 7.7, hematocrit 23.6, platelets 115. INR 3.1. IMAGING DATA: No current GI imaging is available for review. ASSESSMENT AND PLAN: The patient is a 73-year-old male with past medical history of obstructive sleep apnea; atrial fibrillation, on chronic anticoagulation; benign prostatic hypertrophy; congestive heart failure; and glaucoma, presenting with symptomatic anemia and melena. Melena: The patient has a history of obscure gastrointestinal bleed approximately 18 months ago, that was worked up at [facility] with negative findings on esophagogastroduodenoscopy, colonoscopy, and capsule endoscopy (although, hospital records are not available for review). However, he is now currently presenting with a repeat occurrence of black-colored stools coupled with a significant drop in his H and H concerning for an upper gastrointestinal bleed in light of supratherapeutic anticoagulation. However, he does continue to have an elevated INR at 3.1 today making endoscopic intervention difficult given the increased likelihood of bleeding in the attempt to intervene on any source of bleeding that might be seen. So, the esophagogastroduodenoscopy was canceled for today with plans to place the patient on the schedule for tomorrow. RECOMMENDATIONS: 1. We would continue to trend H and H and transfuse as necessary to maintain an H and H of 7/21. 2. Continue to monitor clinically for signs of active GI bleeding. 3. We would continue the patient on pantoprazole 40 b.i.d. 4. We would give the patient an additional dose of vitamin K in attempt to reverse the effects of warfarin and bring his INR down closer to 2.0. 5. If the INR is able to come down appropriately, then we would proceed with upper endoscopy at that time for evaluation of the upper GI tract and determine possible etiology of melena. Please place the patient n.p.o. at midnight tonight in anticipation of that endoscopy. We will continue to follow. Please call with any questions. Job ID: [id number]
[2019-01-31] MEDS ORDERED: LIDOCAINE HCL 4% Topical Sol (4 ML SOLN.PK.G.) TP SCH (15:00)
[2019-01-31] MEDS: Lidocaine 4% Topical Sol 50 ML BOT TOP SCH ×2 (16:16→21:57)
[2019-01-31 16:24] LABS: #Eosinphils 0.3 thou/uL (0.0-0.7); #Lymphocytes 1.5 thou/uL (1.20-3.40); #Monocytes 1.1 thou/uL (0.11-0.59); #Neutrophils 7.8 thou/uL (1.40-6.50); %Basophils 0.2 % (0.0-1.0); %Eosinophils 2.6 % (0.0-10.0); %Lymphocytes 14.3 % (21.0-51.0); %Monocytes 10.2 % (0.0-10.0); %Neutrophils 72.6 % (42.0-75.0); Hemoglobin 8.6 g/dL (14.0-18.0); Mean Corpuscular HGB CONC 32.5 g/dL (32.0-36.0); Mean Corpuscular Hemoglobin 31.4 pg (27.0-31.0); Mean Corpuscular Volume 96.5 fL (78.0-98.0); Mean Platelet Volume 6.8 fL (7.4-10.4); Platelet Count 126 thou/uL (130-400); RBC Distribution Width 17.1 % (11.5-14.5); Red Blood Cell (RBC) Count 2.74 mill/uL (4.70-6.10); White Blood Cell (WBC) Count 10.8 thou/uL (4.8-10.8)
[2019-01-31 16:55] LABS: MDiff Complete? YES; Ovalocytes SLIGHT = 2-5 cells (100X) (0-1/hpf); Platelet Morphology Comment Appears Decreased; Polychromasia SLIGHT = 2-3 cells (100X) (0-2/hpf); Schistocytes SLIGHT = 2-5 cells (100X) (0-1/hpf); Tear Drops SLIGHT = 2-5 cells (100X) (0-1/hpf)
[2019-01-31] MEDS: DULoxetine 30 MG CAP PO SCH (21:33)
[2019-02-01 05:58] LABS: HBCM Index 0.05 S/CO (0-0.79); HBSAB Concentration 7.86 mIU/mL; HBSAg Index 0.27 S/CO (0-0.99); Hep B Core Total Ab Non-Reactive (NonReactive); Hep B Core Total Index 0.14 S/CO (0-0.79); Hep B Surf AB Non-Reactive (NonReactive); Hep B Surf Ag Non-Reactive S/CO (NonReactive); Hepatitis B Core IgM Abs Non-Reactive (NonReactive)
--- NOTE | 2019-02-01 06:19 | PDOC.FM ---
- Subjective Subjective: Patient states he is doing well this morning. His only complaint is that he hasn 't had a BM in a couple of days. He states he had some palpitations off and on throughout the night. He denies any episodes of GI bleeding. telemetry a. fib/flutter, rate in 50-60's. - Objective MAR Reviewed: Yes Vital Signs & Weight: Vital Signs (12 hours) Temp Pulse Resp BP Pulse Ox 02/01/19 04:00 98.2 F 53 L 18 118/59 L 93 L 01/31/19 23:56 50 L 104/51 L 01/31/19 20:00 97.8 F 51 L 16 119/57 L 95 Weight Weight 114.305 kg I&O: 01/30/19 01/31/19 02/01/19 06:59 06:59 06:59 Intake Total 590 1170 240 Output Total 500 1900 Balance 90 -730 240 Result Diagrams: 02/01/19 06:27 01/30/19 05:14 EKG Reviewed by me: Yes (A. fib ) Phys Exam - Physical Examination Constitutional: NAD HEENT: PERRLA, moist MMs, sclera anicteric Neck: no nodes, no JVD, supple, full ROM Respiratory: no wheezing, no rales, no rhonchi, clear to auscultation bilateral Cardiovascular: RRR, no rub systolic murmur 2/6 Gastrointestinal: soft, non-tender, no distention, positive bowel sounds Musculoskeletal: no edema, pulses present no LE edema, improved from previous exam. Neurological: non-focal, moves all 4 limbs Psychiatric: normal affect, A&O x 3 Skin: no rash, normal turgor, cap refill <2 seconds Dx/Plan (1) Symptomatic anemia Code(s): D64.9 - ANEMIA, UNSPECIFIED Status: Acute (2) Chronic anemia Code(s): D64.9 - ANEMIA, UNSPECIFIED Status: Chronic (3) GI bleed Code(s): K92.2 - GASTROINTESTINAL HEMORRHAGE, UNSPECIFIED Status: Chronic Qualifiers: GI bleed type/associated pathology: gastrointestinal hemorrhage with hematemesis Qualified Code(s): K92.0 - Hematemesis (4) Exertional angina Code(s): I20.8 - OTHER FORMS OF ANGINA PECTORIS Status: Acute (5) CAD (coronary artery disease) Code(s): I25.10 - ATHSCL HEART DISEASE OF [place] CORONARY ARTERY W/O ANG PCTRS Status: Chronic Qualifiers: Coronary Disease-Associated Artery/Lesion type: bypass graft Associated angina: with stable angina (6) A-fib Code(s): I48.91 - UNSPECIFIED ATRIAL FIBRILLATION Status: Chronic Qualifiers: Atrial fibrillation type: persistent Qualified Code(s): I48.1 - Persistent atrial fibrillation (7) CHF (congestive heart failure) Code(s): I50.9 - HEART FAILURE, UNSPECIFIED Status: Chronic Qualifiers: Heart failure type: unspecified Heart failure chronicity: chronic Qualified Code(s): I50.9 - Heart failure, unspecified (8) Glaucoma Code(s): H40.9 - UNSPECIFIED GLAUCOMA Status: Chronic Qualifiers: Glaucoma type: unspecified Laterality: bilateral Qualified Code(s): H40.9 - Unspecified glaucoma (9) ZECHARIAH (obstructive sleep apnea) Code(s): G47.33 - OBSTRUCTIVE SLEEP APNEA (ADULT) (PEDIATRIC) Status: Chronic (10) BPH (benign prostatic hyperplasia) Code(s): N40.0 - BENIGN PROSTATIC HYPERPLASIA WITHOUT LOWER URINRY TRACT SYMP Status: Chronic Qualifiers: Lower urinary tract symptom presence: symptoms absent Qualified Code(s): N40.0 - Benign prostatic hyperplasia without lower urinary tract symptoms - Plan Plan: 1. Symptomatic anemia; stable and continuing to improved -Most likely cause is from acute blood loss anemia secondary to a GI bleed. -Patient has exertional angina and shortness of breath, improving s/p 2 units pRBCs on 01/30. -Hgb 6.2--> 7.8 --> 7.5--> 7.7-->8.6--> 7.8; stable -INR 3.5 (01/30)--> 3.1 (01/31)-->1.5 -Plt 110 -Vit B12: 1243, Folate: 13.40 -Iron: 39, TIBC 231, Ferritin: 88.27 -patient has received two doses of Vit K. 2. Exertional angina -Trops negative X3 -EKG: A. fib -consider cardiac workup after GI workup completed 3. GI bleed -most likely secondary to coagulopathy caused by warfarin -Sultz recommended to trend H&H and transfuse as necessary to keep hgb stable. monitor for active GI bleeding, Patient has not had anymore rectal bleeding since admission. Continue Pantoprazole 40 mg BID, in case of upper GI bleed, Upper EGD to be done once coagulopathy improves. Patient NPO since midnight. -Pt given another dose of Vit K yesterday. INR down to 1.5 -Scope today. -hold warfarin 4. CHF -cardiomegaly on CXR -Stable at this time 5. CAD -S/P X2 CABG, and X2 stents -Stable at this time, negative trops, No ST segment changes -Patient had an axis change observed on tele 01/30. Has been A. fib in the 50's otherwise. 6. A. Fib - INR 3.5 (01/30)--> 3.1 (01/31) --> 1.5 (02/01) -Hold warfarin 7. ZECHARIAH -stable, continue home therapy 8. Glaucoma -stable, continue home therapy 9. BPH -stable continue home therapy 10. Full Code Disposition: Stable, GI performing upper and lower endoscopy to work up GI bleed. Addendum - Attending - Attending Attestation Date/Time: 02/01/19 1839 I personally evaluated the patient and discussed the management with Dr. Braga. I agree with the History, Examination, Assessment and Plan documented above with any addition or exceptions noted below. Patient here with acute symtomatic anemia thought 2/2 upper GI bleed. His INR is now at appropriate level for EGD. Awaiting that procedure and any further GI recs. Continue Protonix. His H/H has been stable and no evidence of further bleeding. Wean O2 as tolerated. Further mgmt per results of EGD but he may be stable for discharge in the next day or so. Tele strip continues to show stable pAfib. Consider inpatient stress testing once cleared by GI versus deferring to outpatient.
[2019-02-01 06:39] LABS: #Eosinphils 0.2 thou/uL (0.0-0.7); #Lymphocytes 1.2 thou/uL (1.20-3.40); #Monocytes 0.8 thou/uL (0.11-0.59); #Neutrophils 5.7 thou/uL (1.40-6.50); %Basophils 0.2 % (0.0-1.0); %Eosinophils 2.7 % (0.0-10.0); %Lymphocytes 14.9 % (21.0-51.0); %Neutrophils 72.2 % (42.0-75.0); Hemoglobin 7.8 g/dL (14.0-18.0); Mean Corpuscular HGB CONC 32.5 g/dL (32.0-36.0); Mean Corpuscular Hemoglobin 31.3 pg (27.0-31.0); Mean Corpuscular Volume 96.4 fL (78.0-98.0); Mean Platelet Volume 7.5 fL (7.4-10.4); Platelet Count 132 thou/uL (130-400); RBC Distribution Width 16.9 % (11.5-14.5); Red Blood Cell (RBC) Count 2.48 mill/uL (4.70-6.10); White Blood Cell (WBC) Count 7.9 thou/uL (4.8-10.8)
[2019-02-01 06:57] LABS: INR-International Normal Ratio 1.5; PTT 32.9 SEC (22.9-36.1); Prothrombin Time 18.2 SEC (12.0-14.7)
[2019-02-01] MEDS: Furosemide 40 MG TAB PO SCH ×2 (08:32→13:16)
[2019-02-01] MEDS: Terazosin HCl 5 MG CAP PO SCH (08:34)
[2019-02-01] MEDS: Spironolactone 25 MG TAB PO SCH (08:34)
[2019-02-01] MEDS: Timolol 0.5% Ophth Soln 5 ml Bottle EA EYE SCH ×2 (08:35→20:30)
[2019-02-01] MEDS: Latanoprost 0.005% Ophth Soln 2.5 ml Bottle EA EYE SCH (08:37)
[2019-02-01] MEDS: Lidocaine 4% Topical Sol 50 ML BOT TOP SCH ×3 (08:50→20:29)
--- NOTE | 2019-02-01 12:18 | OP ---
DATE OF PROCEDURE: 02/01/2019 FITNESS MANAGEMENT DIRECTOR SURGEON: None. PROCEDURE PERFORMED: Esophagogastroduodenoscopy with biopsies. INDICATIONS: A 73-year-old man presented with melena and acute blood loss anemia in the context of supratherapeutic INR. Warfarin has now been held for the past 3 days. INR is down to 1.5 today. No evidence of any overt bleeding for the past 2 days and hemoglobin is now stable. MEDICATIONS: See Anesthesia record. FINDINGS: After discussion of the risks, benefits, and alternatives of the procedure, informed consent was obtained and witnessed. Pre-endoscopic cardiopulmonary examination was satisfactory. Time-out was performed before sedation was achieved. Sedation was achieved with Anesthesia assistance in the endoscopy unit. A Pentax adult upper endoscope was placed into the oropharynx and passed through the cricopharyngeus under direct visualization. The esophageal mucosa appeared normal throughout with a normal-appearing Z-line at 41 cm from the incisors. The endoscope was advanced into the stomach. Forward and retroflexed views of the entire gastric mucosa were obtained. There was some diffuse erythema and friability throughout the entire gastric mucosa. There were a few small erosions in the gastric body. One of these sites has some adherent heme staining. There was no evidence of significant old blood or active bleeding in the stomach. Biopsies were obtained from the gastric antrum, body, and fundus to rule out H pylori infection. The endoscope was advanced through the pylorus and into the first and second portions of the duodenum. 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 There is no bleeding or oozing from this area. Remainder of the duodenum appears normal. The upper endoscope was completely withdrawn and the patient allowed to recover. The patient tolerated the procedure well. There were no immediate postprocedure complications. IMPRESSION: 1. Mild diffuse gastritis with a few small erosions, biopsied to rule out Helicobacter pylori. 2. 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 3. Otherwise normal esophagogastroduodenoscopy. RECOMMENDATIONS: 1. We would continue PPI therapy twice daily oral dosing going forward. 2. Follow up pathology results on the gastric biopsies. If H pylori is present, treat with triple therapy and confirm eradication. We can follow up the biopsy results on an outpatient basis. 3. Avoid over anticoagulation. 4. Advance diet. GI will sign off. Please call back anytime with questions or concerns. Job ID: [id number]
[2019-02-01] MEDS ORDERED: PROPOFOL 200 MG/20 ML VIAL ONE (13:22)
[2019-02-01] MEDS ORDERED: Lidocaine 1% PF 5 ML VIAL ONE (13:22)
[2019-02-01] MEDS ORDERED: Polyethylene Glycol 3350 17 GM Packet PO PRN (13:27)
[2019-02-01] MEDS ORDERED: Warfarin Sodium 2.5 MG TAB PO SCH (17:30)
[2019-02-01] MEDS: DULoxetine 30 MG CAP PO SCH (20:29)
[2019-02-02 06:10] LABS: #Eosinphils 0.3 thou/uL (0.0-0.7); #Lymphocytes 1.2 thou/uL (1.20-3.40); #Monocytes 0.9 thou/uL (0.11-0.59); #Neutrophils 5.3 thou/uL (1.40-6.50); %Eosinophils 3.5 % (0.0-10.0); %Monocytes 11.5 % (0.0-10.0); Hemoglobin 7.6 g/dL (14.0-18.0); Mean Corpuscular HGB CONC 32.4 g/dL (32.0-36.0); Mean Corpuscular Hemoglobin 31.5 pg (27.0-31.0); Mean Corpuscular Volume 97.3 fL (78.0-98.0); Mean Platelet Volume 7.4 fL (7.4-10.4); Platelet Count 142 thou/uL (130-400); Red Blood Cell (RBC) Count 2.42 mill/uL (4.70-6.10); White Blood Cell (WBC) Count 7.6 thou/uL (4.8-10.8)
[2019-02-02 06:13] LABS: INR-International Normal Ratio 1.3; Prothrombin Time 15.9 SEC (12.0-14.7)
[2019-02-02 07:15] LABS: Hepatitis A IgM ABS Negative (Negative); Hepatitis A Total ABS Positive (Negative)
[2019-02-02] MEDS: Lidocaine 4% Topical Sol 50 ML BOT TOP SCH ×3 (08:11→21:00)
[2019-02-02] MEDS: Furosemide 40 MG TAB PO SCH ×2 (09:58→15:18)
[2019-02-02] MEDS: Timolol 0.5% Ophth Soln 5 ml Bottle EA EYE SCH ×2 (09:58→21:14)
[2019-02-02] MEDS ORDERED: Regadenoson 0.4 MG/5 ML SYRINGE ONE (10:21)
--- NOTE | 2019-02-02 11:13 | PDOC.FM ---
- Subjective Subjective: Patient states he had some episodes of SOB and chest pain throughout the night, but did not tell his nurse or ask for nitro. Going for Stress test this AM. denies any GI bleeding had a BM last night. - Objective MAR Reviewed: Yes Vital Signs & Weight: Vital Signs (12 hours) Temp Pulse Resp BP Pulse Ox 02/02/19 07:26 98.8 F 53 L 18 145/67 H 94 L 02/02/19 04:00 98.2 F 50 L 16 127/58 L 95 02/02/19 00:00 96 Weight Weight 114.305 kg I&O: 02/01/19 02/02/19 02/03/19 06:59 06:59 06:59 Intake Total 240 960 Balance 240 960 Result Diagrams: 02/02/19 05:18 01/30/19 05:14 Additional Labs: INR 1.3 Phys Exam - Physical Examination Constitutional: NAD HEENT: PERRLA, moist MMs, sclera anicteric Neck: no JVD, supple, full ROM Respiratory: no wheezing, no rales, no rhonchi, clear to auscultation bilateral Cardiovascular: no significant murmur, no rub 2/6 systolic murmur Gastrointestinal: soft, non-tender, no distention, positive bowel sounds Musculoskeletal: no edema, pulses present Neurological: non-focal, moves all 4 limbs Psychiatric: normal affect, A&O x 3 Skin: no rash, normal turgor, cap refill <2 seconds Dx/Plan (1) Symptomatic anemia Code(s): D64.9 - ANEMIA, UNSPECIFIED Status: Acute (2) Chronic anemia Code(s): D64.9 - ANEMIA, UNSPECIFIED Status: Chronic (3) GI bleed Code(s): K92.2 - GASTROINTESTINAL HEMORRHAGE, UNSPECIFIED Status: Chronic Qualifiers: GI bleed type/associated pathology: gastrointestinal hemorrhage with hematemesis Qualified Code(s): K92.0 - Hematemesis (4) Exertional angina Code(s): I20.8 - OTHER FORMS OF ANGINA PECTORIS Status: Acute (5) CAD (coronary artery disease) Code(s): I25.10 - ATHSCL HEART DISEASE OF [place] CORONARY ARTERY W/O ANG PCTRS Status: Chronic Qualifiers: Coronary Disease-Associated Artery/Lesion type: bypass graft Associated angina: with stable angina (6) A-fib Code(s): I48.91 - UNSPECIFIED ATRIAL FIBRILLATION Status: Chronic Qualifiers: Atrial fibrillation type: persistent Qualified Code(s): I48.1 - Persistent atrial fibrillation (7) CHF (congestive heart failure) Code(s): I50.9 - HEART FAILURE, UNSPECIFIED Status: Chronic Qualifiers: Heart failure type: unspecified Heart failure chronicity: chronic Qualified Code(s): I50.9 - Heart failure, unspecified (8) Glaucoma Code(s): H40.9 - UNSPECIFIED GLAUCOMA Status: Chronic Qualifiers: Glaucoma type: unspecified Laterality: bilateral Qualified Code(s): H40.9 - Unspecified glaucoma (9) ZECHARIAH (obstructive sleep apnea) Code(s): G47.33 - OBSTRUCTIVE SLEEP APNEA (ADULT) (PEDIATRIC) Status: Chronic (10) BPH (benign prostatic hyperplasia) Code(s): N40.0 - BENIGN PROSTATIC HYPERPLASIA WITHOUT LOWER URINRY TRACT SYMP Status: Chronic Qualifiers: Lower urinary tract symptom presence: symptoms absent Qualified Code(s): N40.0 - Benign prostatic hyperplasia without lower urinary tract symptoms - Plan Plan: 1. Symptomatic anemia; stable and continuing to improved -Most likely cause is from acute blood loss anemia secondary to a GI bleed. No GI bleeding since in hospital. -Patient has exertional angina and shortness of breath, improving s/p 2 units pRBCs on 01/30. -Hgb 6.2--> 7.8 --> 7.5--> 7.7-->8.6--> 7.8--> 7.6; stable -INR 3.5 (01/30)--> 3.1 (01/31)-->1.5 (02/01)--> 1.3 (02/02) -Vit B12: 1243, Folate: 13.40 -Iron: 39, TIBC 231, Ferritin: 88.27 -patient received two doses of Vit K. over hospital course. 2. Exertional angina -Trops negative X3 -EKG: A. fib -cardiac stress done this morning, pending results. 3. GI bleed -most likely secondary to coagulopathy caused by warfarin -Sultz recommended to trend H&H and transfuse as necessary to keep hgb stable. monitor for active GI bleeding, Patient has not had anymore rectal bleeding since admission. Continue Pantoprazole 40 mg BID. -Pt given X2 Vit K doses while here. INR down to 1.3 -EGD: gastritis and duodenal AV malformation. Not active bleeding. -warfarin restarted yesterday evening. 4. CHF -cardiomegaly on CXR -Stable at this time 5. CAD -S/P X2 CABG, and X2 stents -Stable at this time, negative trops, No ST segment changes -Patient had an axis change observed on tele 01/30. Has been A. fib in the 50's otherwise. -Stress in process this morning. 6. A. Fib - INR 3.5 (01/30)--> 3.1 (01/31) --> 1.5 (02/01)--> 1.3 (02/02) -warfarin restarted at home dose 7. ZECHARIAH -stable, continue home therapy 8. Glaucoma -stable, continue home therapy 9. BPH -stable continue home therapy 10. Full Code Disposition: Stable, GI signed off, Cardiac stress being performed this morning. Consider DC if normal. Addendum - Attending - Attending Attestation Date/Time: 02/02/19 1363 I personally evaluated the patient and discussed the management with Dr. Braga. I agree with the History, Examination, Assessment and Plan documented above with any addition or exceptions noted below. Patient here for symptomatic anemia and concern for UGIB. Coumadin held and Vit. K given. He had EGD yesterday and GI has signed off and anticoagulation restarted. H/H stable. He has also had chest pain in coordination with anemia and so he is undergoing stress testing today since he has known history of CAD. If negative, can be discharged later today. Otherwise, will need cardiology consult for clearance prior to d/c.
[2019-02-02] MEDS: Spironolactone 25 MG TAB PO SCH (16:06)
[2019-02-02] MEDS: Latanoprost 0.005% Ophth Soln 2.5 ml Bottle EA EYE SCH (16:06)
[2019-02-02] MEDS: Terazosin HCl 5 MG CAP PO SCH (16:07)
[2019-02-02] MEDS ORDERED: Warfarin Sodium 2.5 MG TAB PO SCH (17:00)
[2019-02-02 18:33] LABS: #Eosinphils 0.2 thou/uL (0.0-0.7); #Monocytes 0.9 thou/uL (0.11-0.59); #Neutrophils 6.1 thou/uL (1.40-6.50); %Basophils 0.3 % (0.0-1.0); %Eosinophils 2.6 % (0.0-10.0); %Lymphocytes 12.4 % (21.0-51.0); %Monocytes 10.7 % (0.0-10.0); %Neutrophils 74.1 % (42.0-75.0); Hemoglobin 8.1 g/dL (14.0-18.0); Mean Corpuscular HGB CONC 32.4 g/dL (32.0-36.0); Mean Corpuscular Hemoglobin 31.5 pg (27.0-31.0); Mean Corpuscular Volume 97.2 fL (78.0-98.0); Mean Platelet Volume 6.8 fL (7.4-10.4); Platelet Count 147 thou/uL (130-400); RBC Distribution Width 17.2 % (11.5-14.5); Red Blood Cell (RBC) Count 2.57 mill/uL (4.70-6.10); White Blood Cell (WBC) Count 8.2 thou/uL (4.8-10.8)
[2019-02-02] MEDS: DULoxetine 30 MG CAP PO SCH (20:58)
--- NOTE | 2019-02-03 06:03 | PDOC.FM ---
- Subjective Subjective: Patient states he had dark, tarry diarrhea X4 times last night. He complains of a few chest pain and shortness of breath episodes. Tele: Juno aguilar with BBB 50's-70's. - Objective MAR Reviewed: Yes Vital Signs & Weight: Vital Signs (12 hours) Temp Pulse Resp BP BP Pulse Ox 02/03/19 04:00 98.8 F 50 L 16 141/65 H 98 02/02/19 21:14 51 L 02/02/19 19:31 98.5 F 51 L 16 129/58 L 97 Weight Weight 114.305 kg I&O: 02/01/19 02/02/19 02/03/19 06:59 06:59 06:59 Intake Total 240 960 240 Balance 240 960 240 Result Diagrams: 02/03/19 07:09 01/30/19 05:14 Phys Exam - Physical Examination Constitutional: NAD HEENT: PERRLA, moist MMs, sclera anicteric Neck: no nodes, no JVD, supple, full ROM Respiratory: no wheezing, no rales, no rhonchi, clear to auscultation bilateral Cardiovascular: RRR, no rub systolic 2/3 murmur Gastrointestinal: soft, no distention, positive bowel sounds tender to palpation periumbilical. Musculoskeletal: no edema, pulses present Neurological: non-focal, moves all 4 limbs Psychiatric: normal affect, A&O x 3 Skin: no rash, normal turgor, cap refill <2 seconds Dx/Plan (1) Symptomatic anemia Code(s): D64.9 - ANEMIA, UNSPECIFIED Status: Acute (2) Chronic anemia Code(s): D64.9 - ANEMIA, UNSPECIFIED Status: Chronic (3) GI bleed Code(s): K92.2 - GASTROINTESTINAL HEMORRHAGE, UNSPECIFIED Status: Chronic Qualifiers: GI bleed type/associated pathology: gastrointestinal hemorrhage with hematemesis Qualified Code(s): K92.0 - Hematemesis (4) Exertional angina Code(s): I20.8 - OTHER FORMS OF ANGINA PECTORIS Status: Acute (5) CAD (coronary artery disease) Code(s): I25.10 - ATHSCL HEART DISEASE OF [place] CORONARY ARTERY W/O ANG PCTRS Status: Chronic Qualifiers: Coronary Disease-Associated Artery/Lesion type: bypass graft Associated angina: with stable angina (6) A-fib Code(s): I48.91 - UNSPECIFIED ATRIAL FIBRILLATION Status: Chronic Qualifiers: Atrial fibrillation type: persistent Qualified Code(s): I48.1 - Persistent atrial fibrillation (7) CHF (congestive heart failure) Code(s): I50.9 - HEART FAILURE, UNSPECIFIED Status: Chronic Qualifiers: Heart failure type: unspecified Heart failure chronicity: chronic Qualified Code(s): I50.9 - Heart failure, unspecified (8) Glaucoma Code(s): H40.9 - UNSPECIFIED GLAUCOMA Status: Chronic Qualifiers: Glaucoma type: unspecified Laterality: bilateral Qualified Code(s): H40.9 - Unspecified glaucoma (9) ZECHARIAH (obstructive sleep apnea) Code(s): G47.33 - OBSTRUCTIVE SLEEP APNEA (ADULT) (PEDIATRIC) Status: Chronic (10) BPH (benign prostatic hyperplasia) Code(s): N40.0 - BENIGN PROSTATIC HYPERPLASIA WITHOUT LOWER URINRY TRACT SYMP Status: Chronic Qualifiers: Lower urinary tract symptom presence: symptoms absent Qualified Code(s): N40.0 - Benign prostatic hyperplasia without lower urinary tract symptoms - Plan Plan: 1. Symptomatic anemia; stable and continuing to improved -Most likely cause is from acute blood loss anemia secondary to a GI bleed. Melena stools X4 yesterday. -Patient has exertional angina and shortness of breath, improved s/p 2 units pRBCs on 01/30. Few episodes of SOB and chest pain last night. -Hgb 6.2--> 7.8 --> 7.5--> 7.7-->8.6--> 7.8--> 7.6--> 8.1; stable -INR 3.5 (01/30)--> 3.1 (01/31)-->1.5 (02/01)--> 1.3 (02/02) -Vit B12: 1243, Folate: 13.40 -Iron: 39, TIBC 231, Ferritin: 88.27 -patient received two doses of Vit K. over hospital course. 2. Exertional angina -Trops negative X3 -EKG: A. fib -cardiac stress done yesterday, no impression of reversible ischemia, 60% EF. 3. GI bleed -most likely secondary to coagulopathy caused by warfarin -Sultz recommended to trend H&H and transfuse as necessary to keep hgb stable. monitor for active GI bleeding, Patient has not had anymore rectal bleeding since admission. Continue Pantoprazole 40 mg BID. -Pt given X2 Vit K doses while here. INR down to 1.3 -EGD: gastritis and duodenal AV malformation. Not active bleeding. -warfarin restarted X2 nights ago. -Melena diarrhea yesterday and night X4 4. CHF -cardiomegaly on CXR -Stable at this time 5. CAD -S/P X2 CABG, and X2 stents -Stable at this time, negative trops, No ST segment changes -Patient had an axis change observed on tele 01/30. Has been A. fib in the 50's-70 's overnight. -Stress negative 6. A. Fib - INR 3.5 (01/30)--> 3.1 (01/31) --> 1.5 (02/01)--> 1.3 (02/02) -warfarin restarted at home dose 7. ZECHARIAH -stable, continue home therapy 8. Glaucoma -stable, continue home therapy 9. BPH -stable continue home therapy 10. Full Code Disposition: Stable, GI signed off, Cardiac stress negative. Discharge Addendum - Attending - Attending Attestation Date/Time: 02/03/19 0137 I personally evaluated the patient and discussed the management with Dr. Braga. I agree with the History, Examination, Assessment and Plan documented above with any addition or exceptions noted below. Patient here with symptomatic anemia and chest pain suspicious for demand ischemia. EGD nonrevealing and his H/H has been stable. We are awaiting results of his stress testing for possible discharge versus cardiology consult. INR not at goal after resumption of Coumadin due to his Vit K that he received by GI though this can be further managed outpatient once otherwise medically stable.
[2019-02-03] MEDS: Nitroglycerin 0.4 MG TAB (25 Tab Bottle) SL PRN ×2 (06:58→07:03)
[2019-02-03 07:29] LABS: #Eosinphils 0.2 thou/uL (0.0-0.7); #Lymphocytes 0.8 thou/uL (1.20-3.40); #Monocytes 0.7 thou/uL (0.11-0.59); #Neutrophils 4.7 thou/uL (1.40-6.50); %Basophils 0.6 % (0.0-1.0); %Eosinophils 3.7 % (0.0-10.0); %Lymphocytes 12.4 % (21.0-51.0); %Monocytes 10.4 % (0.0-10.0); Mean Corpuscular HGB CONC 32.2 g/dL (32.0-36.0); Mean Corpuscular Hemoglobin 31.5 pg (27.0-31.0); Mean Corpuscular Volume 98.1 fL (78.0-98.0); Mean Platelet Volume 6.8 fL (7.4-10.4); Platelet Count 145 thou/uL (130-400); RBC Distribution Width 16.9 % (11.5-14.5); Red Blood Cell (RBC) Count 2.53 mill/uL (4.70-6.10); White Blood Cell (WBC) Count 6.5 thou/uL (4.8-10.8)
[2019-02-03 07:36] LABS: INR-International Normal Ratio 1.2; Prothrombin Time 15.5 SEC (12.0-14.7)
--- NOTE | 2019-02-03 07:52 | NM ---
Nuclear medicine Cardiac myocardial perfusion SPECT Ejection fraction study Wall motion cine: DATE:02/02/2019 12:00 AM INDICATION: Chest pain shortness of breath TECHNIQUE: Number of days:2 Rest Study: Technetium 99m-sestamibi (Cardiolite) dose:9.9 mCi Stress study: Technetium 99m-sestamibi (Cardiolite) dose:27.0 mCi FINDINGS: Cardiac (myocardial perfusion) SPECT There are no reversible myocardial perfusion defects. There are predominantly fixed defects involving the anterior and anterolateral wall. Ejection fraction study Left ventricular EF = 60% Wall motion cine Nonspecific hypokinesia of the septum. Otherwise wall motion appears within normal limits. IMPRESSION: No evidence of reversible myocardial ischemia. Predominantly fixed defects involving the anterior and anterolateral wall may be related to overlying soft tissue attenuation. There was normal wall thickening and motion within these segments. There is nonspecific hypokinesia of the septum. Would re commend consideration for echocardiography for further evaluation.
[2019-02-03] MEDS: Terazosin HCl 5 MG CAP PO SCH (08:39)
[2019-02-03] MEDS: Furosemide 40 MG TAB PO SCH (08:39)
[2019-02-03] MEDS: Spironolactone 25 MG TAB PO SCH (08:40)
[2019-02-03] MEDS: Timolol 0.5% Ophth Soln 5 ml Bottle EA EYE SCH (08:41)
[2019-02-03] MEDS: Latanoprost 0.005% Ophth Soln 2.5 ml Bottle EA EYE SCH (08:41)
[2019-02-03] MEDS: Lidocaine 4% Topical Sol 50 ML BOT TOP SCH (08:42)
--- NOTE | 2019-02-03 11:11 | EKG ---
Test Reason : REPEAT CP Blood Pressure : / mmHG Vent. Rate : 061 BPM Atrial Rate : 052 BPM P-R Int : 000 ms QRS Dur : 106 ms QT Int : 464 ms P-R-T Axes : 000 -31 129 degrees QTc Int : 467 ms Atrial fibrillation Left axis deviation Incomplete right bundle branch block Minimal voltage criteria for LVH, may be normal variant Prolonged QT Abnormal ECG No ST elevation/TN Confirmed by ZULEIMA Alexandre, RAMU ([id number]), managing editor BHARAT AGUILAR ([id number]) on 02/03/2019 11:11:41 AM Referred By: ZULEIMA Confirmed By:RAMU DEWEY M.D.
[2019-02-03 12:08] VITALS: BP 124/58; TEMP 98.9
--- NOTE | 2019-02-03 13:15 | EKG ---
Test Reason : Blood Pressure : / mmHG Vent. Rate : 059 BPM Atrial Rate : 043 BPM P-R Int : 000 ms QRS Dur : 108 ms QT Int : 464 ms P-R-T Axes : 000 -35 127 degrees QTc Int : 459 ms Atrial fibrillation with slow ventricular response Left axis deviation Incomplete right bundle branch block Abnormal ECG New T wave inversion V1,V2 Confirmed by GLORIA MONTOYA, FLORINA ([id number]), copy editor BHARAT AGUILAR ([id number]) on 02/03/2019 1:14:46 PM Referred By: Confirmed By:FLORINA CASTRO MD
--- NOTE | 2019-02-04 05:13 | DIS ---
DATE OF ADMISSION: 01/29/2019 DATE OF DISCHARGE: 02/03/2019 ADMITTING ATTENDING: Dr. Murcia DISCHARGE ATTENDING: Magda Damian CONSULTS: GI. PROCEDURES: 1. Upper endoscopy. Dr. Rome recommended to continue to trend his H and H and to transfuse as necessary to maintain his H and H, continue to monitor for signs of GI bleeding and to provide pantoprazole 40 mg b.i.d. for possible upper GI bleed, attempt to reverse the anticoagulation, he gave a total of [address] K[address] Singer set up upper EGD. He recommended to continue PPI therapy. He also took gastric biopsies which were negative for H pylori. There was a nonbleeding AV malformation in the duodenal bulb and mild diffuse gastritis with a few small erosions which he biopsied. Otherwise, normal EGD. 2. Stress test: No reversible ischemia observed. DIAGNOSES: 1. Symptomatic anemia secondary to gastrointestinal bleed. 2. Gastrointestinal bleed secondary to coagulopathy caused by warfarin. 3. Acute kidney injury versus chronic kidney disease. 4. Atrial fibrillation. 5. Coronary artery disease. 6. Gastroesophageal reflux disease. 7. Gout. 8. Glaucoma. DISCHARGE MEDICATIONS: 1. Acetaminophen. 2. Duloxetine 30 mg daily. 3. Furosemide 40 mg daily. 4. Isosorbide mononitrate 60 mg daily. 5. Latanoprost 7.5 mL drops daily. 6. Nitroglycerin sublingual tablets 0.4 mg. 7. Zofran PRN. 8. Probenecid 500 mg p.o. b.i.d. 9. Spironolactone 25 mg daily. 10. Terazosin 10 mg daily. 11. Timolol 1 drop each eye b.i.d. 12. Warfarin 2.5 mg. 13. 81 mg aspirin daily. 14. Atorvastatin 40 mg daily. 15. Carvedilol 6.25 mg b.i.d. 16. Methylcellulose 1000 mg p.o. daily. 17. Pantoprazole 40 mg p.o. b.i.d. HISTORY OF PRESENT ILLNESS/HOSPITAL COURSE: The patient came into the emergency department with history for rectal bleeding per bowel movement of about a cup of blood. He was having chest pain and shortness of breath. He was found to have a hemoglobin of 6.2 upon arrival and INR of 3.4. The patient has a history of AFib, CHF, CAD, and takes warfarin. He was found to have symptomatic anemia secondary to acute GI bleed from warfarin coagulopathy. He was given 2 units of blood and his symptomatic anemic symptoms started to improve. He had several occurrences of chest pain and shortness of breath throughout his hospital course. GI was consulted and did an upper endoscopy which showed an AV malformation in the duodenal bulb and gastritis with a few ulcerative lesions that were biopsied and came back negative for H pylori. They recommended b.i.d. pantoprazole 40 mg as this is likely an upper GI bleed. The patient then underwent a stress test which showed no evidence of reversible ischemia and an LVEF of 60%. GI signed off and no need for cardiac consult. The patient was very stable. He did have a few episodes of black tarry diarrhea on 02/02 and throughout the night of 02/03, but H and H was stable at 8.1 and INR was not supratherapeutic. The patient lives in nursing home and will have close followup on his INR Coumadin therapy. DISPOSITION: Stable. Appropriate for discharge back to nursing home with close followup. DISCHARGE INSTRUCTIONS: 1. Location: Back home to nursing home. 2. Diet: Heart healthy and Coumadin diet. 3. Activity: As tolerated. 4. Followup: With primary care in less than 1 week's time. Follow up with Cardiology out patient for echo. Job ID: [id number] MTDD
== END 2019-02-03 12:00 | DRG 378 ==
LOC: ERS 16:16 → OBSVTOIN 19:19 → 2SW 19:19 → 2NO 01-31 15:30
PROVIDERS: ADMIT Family Medicine; ATTEND Family Medicine
PROC: 30233N1 Transfusion of Nonautologous Red Blood Cells into Peripheral Vein, Percutaneous Approach (ICD-10-PCS; 2019-01-30)
PROC: 0DB68ZX Excision of Stomach, Via Natural or Artificial Opening Endoscopic, Diagnostic (ICD-10-PCS; principal; 2019-02-01)
DX: K29.71 Gastritis, unspecified, with bleeding (principal); N17.9 Acute kidney failure, unspecified; I13.0 Hypertensive heart and chronic kidney disease with heart failure and stage 1 through stage 4 chronic kidney disease, or unspecified chronic kidney disease; D62 Acute posthemorrhagic anemia; I24.8 Other forms of acute ischemic heart disease; I25.119 Atherosclerotic heart disease of native coronary artery with unspecified angina pectoris; I48.91 Unspecified atrial fibrillation; K21.9 Gastro-esophageal reflux disease without esophagitis; M10.9 Gout, unspecified; H40.9 Unspecified glaucoma; N18.9 Chronic kidney disease, unspecified; K29.70 Gastritis, unspecified, without bleeding; I50.9 Heart failure, unspecified; T45.515A Adverse effect of anticoagulants, initial encounter; N40.0 Benign prostatic hyperplasia without lower urinary tract symptoms; D69.6 Thrombocytopenia, unspecified; G47.33 Obstructive sleep apnea (adult) (pediatric); Z95.5 Presence of coronary angioplasty implant and graft; Y92.009 Unspecified place in unspecified non-institutional (private) residence as the place of occurrence of the external cause; Z95.1 Presence of aortocoronary bypass graft; Z90.49 Acquired absence of other specified parts of digestive tract; Z95.0 Presence of cardiac pacemaker
CPT/HCPCS: 36415; 36416; 36430; 71045; 78452; 80053; 81003; 82274; 82550; 82607; 82728; 82746; 83540; 83550; 83690; 83880; 84484; 85025; 85060; 85610; 85730; 86704; 86705; 86706; 86709; 86850; 86870; 86900; 86901; 86905; 86922; 87340; 87521; 88305; 88312; 93005; 93017; 94760; 96374; 96375; A9500; J2001; J2270; J2405; J2704; J2785; J3430; P9016

== ENCOUNTER 2019-03-13 13:39 | Inpatient (IN) | payer OTHER ==
[2019-03-13 14:21] LABS: #Eosinphils 0.3 thou/uL (0.0-0.7); #Lymphocytes 1.1 thou/uL (1.20-3.40); #Monocytes 0.7 thou/uL (0.11-0.59); #Neutrophils 3.6 thou/uL (1.40-6.50); %Basophils 0.2 % (0.0-1.0); %Eosinophils 5.1 % (0.0-10.0); %Lymphocytes 18.4 % (21.0-51.0); %Monocytes 12.4 % (0.0-10.0); %Neutrophils 63.9 % (42.0-75.0); Hemoglobin 9.1 g/dL (14.0-18.0); Mean Corpuscular HGB CONC 34.2 g/dL (32.0-36.0); Mean Corpuscular Hemoglobin 32.4 pg (27.0-31.0); Mean Corpuscular Volume 94.8 fL (78.0-98.0); Mean Platelet Volume 6.7 fL (7.4-10.4); Platelet Count 137 thou/uL (130-400); RBC Distribution Width 13.6 % (11.5-14.5); Red Blood Cell (RBC) Count 2.81 mill/uL (4.70-6.10); White Blood Cell (WBC) Count 5.7 thou/uL (4.8-10.8)
--- NOTE | 2019-03-13 14:22 | RAD ---
Exam: Chest one view HISTORY:Chest pain Comparison: 01/29/2019 FINDINGS: Cardiac silhouette:Cardiomegaly. There are sternotomy wires. Stable left-sided single lead transvenou s pacing device Aorta: Unremarkable Pulmonary vessels: Normal Costophrenic angles: Clear LUNGS: Persistent opacification overlying the left heart border. Better interrogation with a 2 view c hest radiograph is recommended. Pneumothorax: None Osseous abnormalities: None IMPRESSION: 1. Cardiomegaly. 2.Persistent opacification overlying the left heart border. 2 view chest radiograph is recommended.
[2019-03-13 14:37] LABS: ALT (SGPT) 9 U/L (8-55); AST (SGOT) 15 U/L (5-34); Albumin 3.9 g/dL (3.4-4.8); Alkaline Phosphatase 166 U/L (40-150); Anion Gap 15 mmol/L (10-20); BUN (Urea Nitrogen) 18 mg/dL (8.4-25.7); Bilirubin, Total 0.3 mg/dL (0.2-1.2); CK (CPK) 145 U/L (30-200); Calc. Creatinine Clearance 0 mL/min (70-130); Carbon Dioxide 22 mmol/L (23-31); Chloride 107 mmol/L (98-107); Estimated GFR-MDRD 62; Globulin 3.4 g/dL (2.4-3.5); Glucose 103 mg/dL (83-110); Potassium 3.7 mmol/L (3.5-5.1); Protein, Total 7.3 g/dL (5.8-8.1); Sodium 140 mmol/L (136-145)
[2019-03-13] MEDS ORDERED: Nitroglycerin 0.4 MG TAB 1 EACH ONE (17:12)
[2019-03-13 17:54] LABS: Troponin I 0.023 ng/mL (< 0.028)
[2019-03-13] MEDS ORDERED: Aspirin 325 MG TAB ONE (21:19)
[2019-03-13 21:23] LABS: Troponin I 0.029 ng/mL (< 0.028)
[2019-03-13 21:49] VITALS: BMI 33.5
[2019-03-13] MEDS ORDERED: Acetaminophen 325 MG TAB PO PRN ×2 (22:27→23:06)
[2019-03-13] MEDS ORDERED: Acetaminophen 650 MG Suppository PR PRN (23:06)
[2019-03-13] MEDS ORDERED: Ondansetron ODT 4 MG TAB PO PRN (23:06)
[2019-03-13] MEDS ORDERED: Ondansetron PF 4 MG/2 ML Vial IVP PRN (23:06)
[2019-03-13] MEDS ORDERED: Nitroglycerin 0.4 MG TAB (25 Tab Bottle) SL PRN (23:13)
[2019-03-13] MEDS ORDERED: Carvedilol 3.125 MG TAB PO SCH (23:15)
[2019-03-13] MEDS ORDERED: Clopidogrel Bisulfate 75 MG TAB PO SCH (23:15)
[2019-03-13] MEDS ORDERED: DULoxetine 60 MG CAP PO SCH (23:15)
[2019-03-13] MEDS ORDERED: Furosemide 40 MG TAB PO SCH (23:15)
[2019-03-13] MEDS ORDERED: Atorvastatin Calcium 40 MG TAB PO SCH (23:15)
--- NOTE | 2019-03-13 23:49 | RAD ---
2 view chest: 03/13/2019 at 11:40 PM COMPARISON: 03/13/2019 at 1:59 PM HISTORY: Abnormal chest radiograph FINDINGS: Midline sternotomy wires are present. There is a single lead transvenous pacing device. Rig ht lung is clear. No pneumothorax noted on either side. Nonspecific patchy increased linear density noted in the left lung base, which may represent mild scar or minimal infiltrate. No focal consolidat ion. IMPRESSION: Mild increased linear density in the left base. If there are symptoms referable to this r egion, follow-up chest radiograph suggested.
[2019-03-14] MEDS ORDERED: Warfarin Sodium 2.5 MG TAB PO SCH ×2 (00:15→17:00)
--- NOTE | 2019-03-14 02:17 | HP ---
CHIEF COMPLAINT: Chest pain. HISTORY OF PRESENT ILLNESS: Mr. Null is a 73-year-old man with a history of coronary artery disease status post CABG and states this was done at [facility]. He had a coronary artery stent placed approximately 1 month ago, also done at [facility]. The patient states he felt relief in his chest pain for only 2 hours after the recent stent and then his chest pain recurred and it has been constant since which he rates a 4/10 in severity. He reports having followup with Cardiology next week, but states today the pain became more severe. He does not recall exactly what time, but states it was sometime in the morning. He states the pain became a 9/10 in severity, mainly on the left side of his chest, radiating up to the left side of his neck. It lasted a couple of hours before subsiding and is currently back to the baseline pain of 4/10 in severity. He has been seen here recently in mid January 2018, at which time, he underwent a stress test which showed an EF of 60% and no evidence of reversible myocardial ischemia. There was predominantly fixed defect involving the anterior and anterolateral wall noted, felt to be possibly related to overlying soft tissue attenuation. There were normal thickening and motion within those segments. Nonspecific hypokinesia of the septum present. An echocardiogram was recommended for further evaluation. I do not see that an echo was done at that time; however, the patient states he may have had this done at [facility]. He has a known history of atrial fibrillation, which is rate controlled and does have a permanent pacemaker in place and currently on warfarin. This had been discontinued recently due to a history of chronic anemia associated with presumed GI bleed. In July 2018, he was seen by GI in [place] and underwent colonoscopy and endoscopy which did not show any source of bleeding; however, he has a history of Hemoccult being positive. During his most recent admission, he did undergo an EGD done by Dr. 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 REVIEW OF SYSTEMS: At this present time, the patient denies having any shortness of breath or lightheadedness. Has not noted any melena or bright red blood in stools. Denies having any dysuria or hematuria. No abdominal pain or cramping. All other review of systems are negative. PAST MEDICAL HISTORY: 1. Chronic anemia. 2. History of GI bleed. 3. CKD. 4. Atrial fibrillation, on chronic anticoagulation with warfarin. 5. Coronary artery disease. 6. GERD. 7. Gout. 8. Glaucoma. 9. Obstructive sleep apnea. 10. BPH. 11. CHF. 12. Exertional angina. PAST SURGICAL HISTORY: 1. Catheterization in 2017. 2. Double bypass in 2017. 3. Remote history of stents x2, stent x1 one month ago. 4. Pacemaker in 2017. 5. Cholecystectomy 10 years ago. FAMILY HISTORY: History of diabetes mellitus in his sister and father. SOCIAL HISTORY: The patient denies any tobacco use, alcohol consumption, or illicit drug use. He is currently in halfway. ALLERGIES: NO KNOWN DRUG ALLERGIES. CURRENT MEDICATIONS: 1. Atorvastatin. 2. Carvedilol. 3. Plavix. 4. Duloxetine. 5. Feosol. 6. Lasix. 7. Isosorbide mononitrate. 8. Latanoprost. 9. Methylcellulose. 10. Nitroglycerin. 11. Probenecid. 12. Spironolactone. 13. Terazosin. 14. Timolol. 15. Warfarin. 16. Pantoprazole. PHYSICAL EXAMINATION: GENERAL: The patient appears well developed, well nourished, and is in no acute distress. VITAL SIGNS: Temperature 98, pulse 50, respirations 16, O2 saturation 95% on room air, blood pressure 163/72. HEENT: Normocephalic and atraumatic. Pupils are equal, round, and reactive to light. Sclerae without icterus. Oropharynx is clear. NECK: Supple. LUNGS: Clear to auscultation bilaterally. CARDIAC: Normal heart sounds. No audible murmurs, rubs, or gallops. No chest wall tenderness. Permanent pacemaker in the left anterior chest. No soft tissue swelling, erythema, or warmth to touch. LUNGS: Clear to auscultation bilaterally. ABDOMEN: Soft, obese, nontender, nondistended. Normoactive bowel sounds present. EXTREMITIES: No lower leg swelling or edema. NEUROLOGIC: Alert and oriented x3. SKIN: Without rash or jaundice. LABORATORY DATA: Full blood count notable for white count of 5.7, hemoglobin 9.1, which is improved from one month ago, hematocrit 26.6, platelets 137. Sodium 140, potassium 3.7, chloride 107, carbon dioxide 22, anion gap 15, BUN 18, creatinine 1.37, GFR 62, glucose 103, calcium 9, total bilirubin 0.3, AST 15, ALT 9, alkaline phosphatase 166. CK 145. Troponin negative x2. Albumin 3.9. IMAGING DATA: Chest x-ray showed cardiomegaly with persistent opacification overlying the left heart border. Two-view chest radiograph recommended. IMPRESSION AND PLAN: Mr. Null is a 73-year-old man with an extensive cardiac history as mentioned above in HPI, who has been referred for management of the followin. Acute coronary syndrome rule out. The patient with persisting chest pain since undergoing stent 1 month ago. He states he had relief lasting only 2 hours after the procedure and prior to the procedure, had persistent chest pain as well. He states the pain became more severe today going from 4/10 in severity which is his baseline to 8/10 and radiating from the left side of his chest to his neck. Currently, the pain is back to baseline. We will continue to trend troponins. We will request Cardiology records from [facility] since he has had CABG and recent stenting done there and apparently per the patient, had an echocardiogram done there as well. He had followup next week. Apparently, there was an attempt made to transfer him to [facility], however, they were at capacity and did not accept the transfer. Given the fact that he has had recent procedures and his complicated history, we will place consultation with Cardiology. 2. Anemia. Asymptomatic at present and appears to be slightly better from more recent admission in January. The patient with a history of GI bleeds, but no complaints of melena at this present time. We will monitor H and H to ensure remain stable. He is hemodynamically normal except from slightly reduced heart rate in the 50s. 3. Gastrointestinal prophylaxis. We will continue Protonix. 4. Deep venous thrombosis prophylaxis. The patient is on anticoagulation with warfarin. If there is any drop with his hemoglobin or concern for recurrent GI bleed, we will need to stop anticoagulation. Mechanical SCDs requested. 5. Code status, full. Unable to name surrogate decision maker at this present time. The patient's case was discussed with attending who agrees with plan of care as described above. Job ID: [id number]
[2019-03-14 04:42] LABS: #Eosinphils 0.3 thou/uL (0.0-0.7); #Lymphocytes 1.2 thou/uL (1.20-3.40); #Monocytes 0.7 thou/uL (0.11-0.59); #Neutrophils 3.7 thou/uL (1.40-6.50); %Basophils 0.5 % (0.0-1.0); %Eosinophils 4.5 % (0.0-10.0); %Lymphocytes 20.9 % (21.0-51.0); %Monocytes 12.5 % (0.0-10.0); %Neutrophils 61.6 % (42.0-75.0); Hemoglobin 9.3 g/dL (14.0-18.0); Mean Corpuscular HGB CONC 34.5 g/dL (32.0-36.0); Mean Corpuscular Hemoglobin 32.7 pg (27.0-31.0); Mean Corpuscular Volume 94.8 fL (78.0-98.0); Mean Platelet Volume 7.2 fL (7.4-10.4); Platelet Count 149 thou/uL (130-400); RBC Distribution Width 13.5 % (11.5-14.5); Red Blood Cell (RBC) Count 2.85 mill/uL (4.70-6.10); White Blood Cell (WBC) Count 5.9 thou/uL (4.8-10.8)
[2019-03-14 04:53] LABS: Anion Gap 13 mmol/L (10-20); BUN (Urea Nitrogen) 20 mg/dL (8.4-25.7); Calc. Creatinine Clearance 82 mL/min (70-130); Calcium 9.1 mg/dL (7.8-10.44); Carbon Dioxide 21 mmol/L (23-31); Cardiac Risk 2.8 (Less than 4.5); Chloride 108 mmol/L (98-107); Cholesterol 75 mg/dl (< 200 Desired); Estimated GFR-MDRD 69; Glucose 92 mg/dL (83-110); HDL Cholesterol 27 mg/dL (>60 Neg Risk); Potassium 3.6 mmol/L (3.5-5.1); Sodium 138 mmol/L (136-145)
[2019-03-14 05:05] LABS: Triglycerides 78 mg/dL (Less than 150)
[2019-03-14 05:06] LABS: INR-International Normal Ratio 1.7; PTT 41.7 SEC (22.9-36.1); Prothrombin Time 19.6 SEC (12.0-14.7)
[2019-03-14 05:14] LABS: LDL Cholesterol, Calculated 32 mg/dL
[2019-03-14] MEDS ORDERED: Famotidine/PF 20 mg/2ml Vial SLOW IVP SCH (09:00)
[2019-03-14] MEDS: Carvedilol 3.125 MG TAB PO SCH ×2 (09:30→21:58)
[2019-03-14] MEDS: Spironolactone 25 MG TAB PO SCH (09:30)
[2019-03-14] MEDS: Citrucel 500 MG TAB PO SCH (09:30)
[2019-03-14] MEDS: Furosemide 40 MG TAB PO SCH ×2 (09:30→15:08)
[2019-03-14] MEDS: Docusate 100 MG CAP PO SCH ×2 (09:31→22:01)
[2019-03-14] MEDS: Timolol 0.5% Ophth Soln 5 ml Bottle EA EYE SCH ×2 (10:17→22:03)
[2019-03-14] MEDS: Clopidogrel Bisulfate 75 MG TAB PO SCH ×2 (10:18→22:00)
[2019-03-14 11:11] LABS: Iron 33 ug/dL (65-175); Iron Binding Capacity, Total 278 mcg/dL (261-462)
--- NOTE | 2019-03-14 12:14 | CON ---
DATE OF CONSULTATION: 03/14/2019 HISTORY OF PRESENT ILLNESS: Mr. Null is a 73-year-old man, who recently underwent stent implantation at [facility] in [place] with continued chest pain. The patient is an inmate at the [place] [facility] [employer]. The patient states he had bypass surgery about 2 years ago in [facility]. He had his bypass x2. He was evaluated with recurrent chest pain and underwent a cardiac catheterization and stent implantation in [place] less than a month ago. The details of that are not available to me. The patient states that the patient's pain came back in about 2 hours after the stent and it has been worse than ever. He said the pain is now worse than before the stent was placed. He was brought back here for evaluation. OTHER PAST HISTORY: He has had a previous pacemaker insertion and he also has chronic atrial fibrillation. SOCIAL HISTORY: He is an inmate in [place] [facility] [email or web address]. MEDICATIONS: 1. Warfarin 2.5 mg a day. 2. Terazosin 10 mg a day. 3. Spironolactone 25 mg a day. 4. Isosorbide. 5. Lasix. 6. Atorvastatin. 7. Carvedilol. 8. Clopidogrel, it is listed as 25 mg a day, I do not think that is the appropriate dose. ALLERGIES: NONE KNOWN. REVIEW OF SYSTEMS: CONSTITUTIONAL: No significant weight gain or loss. VISION: No changes. HEARING: No changes. PULMONARY: No cough or wheezing. GASTROINTESTINAL: No nausea, vomiting, or diarrhea. SKIN: No rashes. NEUROLOGIC: No unilateral weakness or numbness. PSYCHIATRIC: No unusual depression or anxiety. PHYSICAL EXAMINATION: GENERAL: On examination, this is a pleasant 73-year-old gentleman. He is 5 feet and 11 inches tall, weight 240 pounds. HEENT: Eyes; sclerae are nonicteric. Mouth; mucous membranes are moist. NECK: Supple. No lymphadenopathy. LUNGS: Clear. CARDIAC: Normal S1. Normal S2. There is no murmur, rub, or gallop. ABDOMEN: Soft and nontender. EXTREMITIES: No clubbing, cyanosis, or edema. DIAGNOSTIC DATA: EKG reveals atrial fibrillation, mostly ventricular paced rhythm. Chest x-ray shows ventricular pacing. Troponin levels, there is one indeterminate at 0.029. BNP 498.9. LDL cholesterol is 32. ASSESSMENT: 1. Previous bypass surgery. 2. Recent stent implantation, in which he says chest pain is worse since the stent was placed. It is left upper chest, sometimes worse when he walks around. No change with coughing or deep breathing. 3. Previous pacemaker. 4. Chronic atrial fibrillation. 5. Anemia with hemoglobin of 9.3. PLAN: 1. Requested recent records. 2. It would appear best to transfer him back to [facility] in [place] since they just placed the stent and he has had some worsening of his pain following that. The details of what was done is not available to me. It is certainly possible that there was a small vessel that was stented and nothing further that can be done, but none of this information is currently available. 3. We will check iron levels. If he is iron deficient, consider intravenous iron. Job ID: [id number]
[2019-03-14] MEDS ORDERED: Iron Sucrose Complex 200 MG in Sodium Chloride 0.9% 250 ML 250 ML IVPB SCH (16:45)
--- NOTE | 2019-03-14 17:12 | PDOC.HOSPP ---
- Subjective Encounter Date: 03/14/19 Encounter Time: 17:11 Subjective: Patient lying in bed with 2 guards present, he reports persistent chest pain and shortness of breath that has been ongoing since last heart cath last month. No events over night. - Objective Vital Signs & Weight: Vital Signs (12 hours) Temp Pulse Resp BP BP Pulse Ox 03/14/19 15:53 99.0 F 50 L 16 138/62 94 L 03/14/19 11:45 98.5 F 50 L 24 H 118/55 L 94 L 03/14/19 10:17 60 135/60 03/14/19 07:40 97.9 F 50 L 16 135/60 95 Weight Admit Weight 240 lb Weight 240 lb 1.6 oz I&O: 03/13/19 03/14/19 03/15/19 06:59 06:59 06:59 Intake Total 240 Output Total 1000 Balance -760 Result Diagrams: 03/14/19 04:02 03/14/19 04:02 Radiology Reviewed by me: Yes ROS - Review of Systems Constitutional: denies: fever, chills Eyes: denies: pain, vision change, conjunctivae inflammation Respiratory: reports: SOB with excertion. denies: cough, dry, shortness of breath Cardiovascular: reports: chest pain. denies: palpitations, light headedness Gastrointestinal: denies: nausea, vomitting, abdominal pain Musculoskeletal: denies: shoulder pain, back pain, leg pain Skin: denies: rash, lesions Neurological: denies: weakness, numbness, change in speech All other systems reviewed; all pertinent +/- noted in HPI/Subj - Medication Medications: Active Medications Generic Name Dose Route Start Last Admin Trade Name Katherine PRN Reason Stop Dose Admin Carvedilol 3.125 mg 03/14/19 09:00 03/14/19 09:30 Coreg PO 3.125 mg BID ALYSHA Administration Clopidogrel Bisulfate 75 mg 03/14/19 09:00 03/14/19 10:18 Plavix PO 75 mg DAILY ALYSHA Administration Docusate Sodium 100 mg 03/14/19 09:00 03/14/19 09:31 Colace PO 100 mg BID ALYSHA Administration Furosemide 40 mg 03/14/19 09:00 03/14/19 15:08 Lasix PO 40 mg 0900,1400 ALYSHA Administration Isosorbide Mononitrate 60 mg 03/14/19 09:00 03/14/19 09:30 Imdur PO 60 mg DAILY ALYSHA Administration Methylcellulose 1,000 mg 03/14/19 09:00 03/14/19 09:30 Citrucel PO 1,000 mg DAILY ALYSHA Administration Pantoprazole Sodium 40 mg 03/14/19 09:00 03/14/19 09:31 Protonix PO 40 mg BID ALYSHA Administration Probenecid 500 mg 03/14/19 09:00 03/14/19 09:31 Benemid PO 500 mg BID ALYSHA Administration Spironolactone 25 mg 03/14/19 08:00 03/14/19 09:30 Aldactone PO 25 mg QAM-WM ALYSHA Administration Timolol Maleate 1 drop 03/14/19 09:00 03/14/19 10:17 Timoptic 0.5% Ophth Soln EA EYE 1 drop BID ALYSHA Administration - Exam NAD, awake alert Eye: anicteric sclera ENT: normocephalic atraumatic, no oropharyngeal lesions Neck: supple, symmetric Heart: RRR, no murmur Respiratory: CTAB, no wheezes Gastrointestinal: soft, non-distended, normal bowel sounds Extremities: no cyanosis, no clubbing, no edema Skin: normal turgor, no rashes Neurological: CN's grossly intact, normal sensation to touch, no focal deficits Musculoskeletal: normal tone, normal strength, no muscle wasting Psychiatric: A&O x 3 Hosp A/P (1) Exertional angina Code(s): I20.8 - OTHER FORMS OF ANGINA PECTORIS Status: Acute (2) A-fib Code(s): I48.91 - UNSPECIFIED ATRIAL FIBRILLATION Status: Chronic Qualifiers: Atrial fibrillation type: persistent Qualified Code(s): I48.1 - Persistent atrial fibrillation (3) BPH (benign prostatic hyperplasia) Code(s): N40.0 - BENIGN PROSTATIC HYPERPLASIA WITHOUT LOWER URINRY TRACT SYMP Status: Chronic Qualifiers: Lower urinary tract symptom presence: symptoms absent Qualified Code(s): N40.0 - Benign prostatic hyperplasia without lower urinary tract symptoms (4) CAD (coronary artery disease) Code(s): I25.10 - ATHSCL HEART DISEASE OF [place] CORONARY ARTERY W/O ANG PCTRS Status: Chronic Qualifiers: Coronary Disease-Associated Artery/Lesion type: bypass graft Associated angina: with stable angina (5) CHF (congestive heart failure) Code(s): I50.9 - HEART FAILURE, UNSPECIFIED Status: Chronic Qualifiers: Heart failure type: unspecified Heart failure chronicity: chronic Qualified Code(s): I50.9 - Heart failure, unspecified (6) Chronic anemia Code(s): D64.9 - ANEMIA, UNSPECIFIED Status: Chronic - Plan old records reviewed/req Records requested at [facility], Dr Rice recommended transfer to [facility] since patient with recent Stent and hx of CABG x2, however they are not able to take patient at this time due to not having bed available and placed patient on waitlist. Dr Rice reviewed the records of previous heart cath and will consider repeat heart cath Tuesday Hold warfarin and trend INR Continue current medical management Symptomatic care Monitor BP and other vitals Repeat CBC and BMP in am Transition patient to inpatient status as he will likely be here more than 3 midnights
[2019-03-14] MEDS ORDERED: Iron, Sodium Ferric Gluconate 250 MG in Sodium Chloride 0.9% 100 ML IVPB SCH (21:00)
[2019-03-14] MEDS: Atorvastatin Calcium 40 MG TAB PO SCH (21:58)
[2019-03-14] MEDS: DULoxetine 60 MG CAP PO SCH (22:02)
[2019-03-14] MEDS: Terazosin HCl 5 MG CAP PO SCH (22:02)
[2019-03-14] MEDS: Latanoprost 0.005% Ophth Soln 2.5 ml Bottle EA EYE SCH (22:05)
[2019-03-15 05:22] LABS: INR-International Normal Ratio 1.5; Prothrombin Time 18.3 SEC (12.0-14.7)
[2019-03-15 05:29] LABS: #Eosinphils 0.3 thou/uL (0.0-0.7); #Lymphocytes 1.3 thou/uL (1.20-3.40); #Monocytes 0.8 thou/uL (0.11-0.59); #Neutrophils 4.1 thou/uL (1.40-6.50); %Basophils 0.1 % (0.0-1.0); %Eosinophils 4.1 % (0.0-10.0); %Lymphocytes 19.4 % (21.0-51.0); %Monocytes 12.7 % (0.0-10.0); %Neutrophils 63.7 % (42.0-75.0); Hemoglobin 9.1 g/dL (14.0-18.0); Mean Corpuscular HGB CONC 32.1 g/dL (32.0-36.0); Mean Corpuscular Hemoglobin 30.6 pg (27.0-31.0); Mean Corpuscular Volume 95.2 fL (78.0-98.0); Mean Platelet Volume 7.2 fL (7.4-10.4); Platelet Count 178 thou/uL (130-400); RBC Distribution Width 13.7 % (11.5-14.5); Red Blood Cell (RBC) Count 2.99 mill/uL (4.70-6.10); White Blood Cell (WBC) Count 6.4 thou/uL (4.8-10.8)
[2019-03-15] MEDS ORDERED: Ferrous Sulfate 325 MG TAB PO SCH (08:00)
[2019-03-15] MEDS: Carvedilol 3.125 MG TAB PO SCH ×2 (08:28→21:09)
[2019-03-15] MEDS: Docusate 100 MG CAP PO SCH ×2 (08:29→21:07)
[2019-03-15] MEDS: Spironolactone 25 MG TAB PO SCH (08:29)
[2019-03-15] MEDS: Clopidogrel Bisulfate 75 MG TAB PO SCH ×2 (08:29→21:07)
[2019-03-15] MEDS: Furosemide 40 MG TAB PO SCH ×2 (08:29→14:13)
[2019-03-15] MEDS: Citrucel 500 MG TAB PO SCH (08:29)
[2019-03-15] MEDS: Timolol 0.5% Ophth Soln 5 ml Bottle EA EYE SCH ×2 (08:30→21:03)
--- NOTE | 2019-03-15 15:24 | PDOC.HOSPP ---
- Subjective Encounter Date: 03/15/19 Encounter Time: 11:15 Subjective: pt up in bed is having chest pain on and off. pt going to have a cath tomorrow. vitals stable. - Objective Vital Signs & Weight: Vital Signs (12 hours) Temp Pulse Resp BP Pulse Ox 03/15/19 11:40 96.9 F L 50 L 18 136/64 94 L 03/15/19 08:27 98 F 50 L 18 130/80 95 Weight Admit Weight 240 lb Weight 240 lb 12.8 oz I&O: 03/14/19 03/15/19 03/16/19 06:59 06:59 06:59 Intake Total 240 960 Output Total 1000 1100 Balance -760 -140 Result Diagrams: 03/15/19 04:48 03/16/19 04:59 ROS - Review of Systems Cardiovascular: reports: chest pain. denies: palpitations, orthopnea, paroxysmal noc. dyspnea, edema, light headedness, other Gastrointestinal: denies: nausea, vomitting, abdominal pain, diarrhea, constipation, melena, hematochezia, other Genitourinary: denies: dysuria, frequency, incontinence, hematuria, retention, other - Medication Medications: Active Medications Generic Name Dose Route Start Last Admin Trade Name Freq PRN Reason Stop Dose Admin Atorvastatin Calcium 40 mg 03/14/19 21:00 03/14/19 21:58 Lipitor PO 40 mg HS ALYSHA Administration Carvedilol 3.125 mg 03/14/19 09:00 03/15/19 08:28 Coreg PO 3.125 mg BID ALYSHA Administration Clopidogrel Bisulfate 25 mg 03/14/19 21:00 03/14/19 22:00 Plavix PO 25 mg HS ALYSHA Administration Clopidogrel Bisulfate 75 mg 03/14/19 09:00 03/15/19 08:29 Plavix PO 75 mg DAILY ALYSHA Administration Docusate Sodium 100 mg 03/14/19 09:00 03/15/19 08:29 Colace PO 100 mg BID ALYSHA Administration Duloxetine HCl 60 mg 03/14/19 21:00 03/14/19 22:02 Cymbalta PO 60 mg HS ALYSHA Administration Ferrous Sulfate 325 mg 03/15/19 08:00 03/15/19 08:29 Feosol PO 325 mg Q2DAYS@0800 ALYSHA Administration Furosemide 40 mg 03/14/19 09:00 03/15/19 14:13 Lasix PO 40 mg 0900,1400 ALYSHA Administration Isosorbide Mononitrate 60 mg 03/14/19 09:00 03/15/19 08:29 Imdur PO 60 mg DAILY ALYSHA Administration Latanoprost 1 drop 03/14/19 21:00 03/14/19 22:05 Xalatan 0.005% Ophth Soln EA EYE 1 drp HS ALYSHA Administration Methylcellulose 1,000 mg 03/14/19 09:00 03/15/19 08:29 Citrucel PO 1,000 mg DAILY ALYSHA Administration Pantoprazole Sodium 40 mg 03/14/19 09:00 03/15/19 08:29 Protonix PO 40 mg BID ALYSHA Administration Probenecid 500 mg 03/14/19 09:00 03/15/19 08:28 Benemid PO 500 mg BID ALYSHA Administration Sodium Chloride 10 ml 03/13/19 23:06 03/15/19 08:30 Flush - Normal Saline IVF 10 ml Q12HR PRN Administration Saline Flush Spironolactone 25 mg 03/14/19 08:00 03/15/19 08:29 Aldactone PO 25 mg QAM-WM ALYSHA Administration Terazosin HCl 10 mg 03/14/19 21:00 03/14/19 22:02 Hytrin PO 10 mg HS ALYSHA Administration Timolol Maleate 1 drop 03/14/19 09:00 03/15/19 08:30 Timoptic 0.5% Ophth Soln EA EYE 1 drop BID ALYSHA Administration Hosp A/P (1) Exertional angina Code(s): I20.8 - OTHER FORMS OF ANGINA PECTORIS Status: Acute (2) A-fib Code(s): I48.91 - UNSPECIFIED ATRIAL FIBRILLATION Status: Chronic Qualifiers: Atrial fibrillation type: persistent Qualified Code(s): I48.1 - Persistent atrial fibrillation (3) BPH (benign prostatic hyperplasia) Code(s): N40.0 - BENIGN PROSTATIC HYPERPLASIA WITHOUT LOWER URINRY TRACT SYMP Status: Chronic Qualifiers: Lower urinary tract symptom presence: symptoms absent Qualified Code(s): N40.0 - Benign prostatic hyperplasia without lower urinary tract symptoms (4) CAD (coronary artery disease) Code(s): I25.10 - ATHSCL HEART DISEASE OF [place] CORONARY ARTERY W/O ANG PCTRS Status: Chronic Qualifiers: Coronary Disease-Associated Artery/Lesion type: bypass graft Associated angina: with stable angina - Plan pt to undergo cardiac cath in am. he is still having pain to his chest. will continue to monitor.
[2019-03-15] MEDS ORDERED: Aspirin 81 mg Enteric Coated Tablet PO SCH (18:00)
[2019-03-15] MEDS ORDERED: Communication Order-Pharmacy FS SCH (18:15)
--- NOTE | 2019-03-15 18:35 | PRG ---
DATE OF SERVICE: 03/15/2019 SUBJECTIVE: Mr. Null continues to have chest pain, worse when he gets up and walks around. OBJECTIVE: VITAL SIGNS: Blood pressure 136/64, pulse 50 and regular. LUNGS: Clear. CARDIAC: Normal S1, normal S2. ABDOMEN: Soft and nontender. We did receive the records from [facility] indicating the following; 1. Left anterior descending artery stent with a severe stenosis. The patent internal mammary artery graft. 2. The ramus had a heavily-calcified vessel with a severe lesion that was balloon dilated and stented. It is a 2.25 x 24 mm Synergy. It was post dilated with a 2.5 mm balloon with 18 atmospheres. 3. Right coronary artery has an ostial lesion with a patent graft. In view of the continued chest pain, it is reasonable to proceed back to cardiac catheterization to see if there is any further that can be done. Discussed risk of stroke, heart attack, iodine allergy, loss of blood supply to leg or kidney, stent thrombosis, stent restenosis. The patient understands and wishes to proceed. He understands there may not be anything further to be done, but in view of the ongoing chest pain, it is appropriate to repeat cardiac catheterization. Job ID: [id number]
[2019-03-15] MEDS: Latanoprost 0.005% Ophth Soln 2.5 ml Bottle EA EYE SCH (21:05)
[2019-03-15] MEDS: DULoxetine 60 MG CAP PO SCH (21:07)
[2019-03-15] MEDS: Terazosin HCl 5 MG CAP PO SCH (21:07)
[2019-03-15] MEDS: Atorvastatin Calcium 40 MG TAB PO SCH (21:07)
[2019-03-16 05:17] LABS: INR-International Normal Ratio 1.3; Prothrombin Time 16.4 SEC (12.0-14.7)
[2019-03-16] MEDS: Sodium Chloride 0.9% 1,000 ML IV SCH ×2 (05:24→16:12)
[2019-03-16] MEDS: Citrucel 500 MG TAB PO SCH (05:26)
[2019-03-16] MEDS: Carvedilol 3.125 MG TAB PO SCH (05:27)
[2019-03-16] MEDS: Clopidogrel Bisulfate 75 MG TAB PO SCH ×2 (05:27→10:52)
[2019-03-16] MEDS: Docusate 100 MG CAP PO SCH (05:29)
[2019-03-16] MEDS: Timolol 0.5% Ophth Soln 5 ml Bottle EA EYE SCH (05:30)
[2019-03-16 05:33] LABS: Anion Gap 10 mmol/L (10-20); BUN (Urea Nitrogen) 12 mg/dL (8.4-25.7); Calc. Creatinine Clearance 90 mL/min (70-130); Calcium 9.4 mg/dL (7.8-10.44); Carbon Dioxide 27 mmol/L (23-31); Chloride 105 mmol/L (98-107); Estimated GFR-MDRD 77; Glucose 104 mg/dL (83-110); Potassium 3.3 mmol/L (3.5-5.1); Sodium 139 mmol/L (136-145)
[2019-03-16] MEDS ORDERED: Diazepam 5 MG TAB PO SCH (06:00)
[2019-03-16] MEDS ORDERED: Lidocaine 1% (PF) 30 ML VIAL ONE (06:29)
[2019-03-16] MEDS ORDERED: Fentanyl 100 MCG/2 ML VIAL ONE (07:18)
[2019-03-16] MEDS ORDERED: Midazolam HCl 2 mg/2 ml Vial ONE (07:18)
[2019-03-16] MEDS ORDERED: Acetaminophen/Codeine 30-300mg Tablet PO PRN ×2 (08:48)
[2019-03-16] MEDS ORDERED: Sodium Chloride 0.9% 200 ML IV PRN (08:48)
[2019-03-16] MEDS ORDERED: Nitroglycerin 0.4 MG TAB (25 Tab Bottle) SL PRN (08:48)
[2019-03-16] MEDS ORDERED: Potassium Chloride 20 MEQ TAB PO SCH (09:15)
[2019-03-16] MEDS ORDERED: Clopidogrel Bisulfate 75 MG TAB PO SCH (09:30)
[2019-03-16] MEDS ORDERED: Iopamidol 370 76% 100 ML VIAL ONE (10:00)
--- NOTE | 2019-03-16 10:49 | PDOC.HOSPP ---
- Subjective Encounter Date: 03/16/19 Encounter Time: 13:00 Subjective: pt up in bed complains of mild chest pain - Objective Vital Signs & Weight: Vital Signs (12 hours) Temp Pulse Resp BP BP BP Pulse Ox 03/16/19 09:10 98.2 F 52 L 18 131/60 95 03/16/19 05:30 50 L 129/60 03/16/19 03:09 98.5 F 50 L 18 129/60 96 03/16/19 00:00 50 L 139/63 Weight Admit Weight 240 lb Weight 239 lb 12.8 oz I&O: 03/15/19 03/16/19 03/17/19 06:59 06:59 06:59 Intake Total 960 960 Output Total 1100 1000 Balance -140 -40 Result Diagrams: 03/15/19 04:48 03/16/19 04:59 ROS - Review of Systems Cardiovascular: reports: chest pain. denies: palpitations, orthopnea, paroxysmal noc. dyspnea, edema, light headedness, other Gastrointestinal: denies: nausea, vomitting, abdominal pain, diarrhea, constipation, melena, hematochezia, other Genitourinary: denies: dysuria, frequency, incontinence, hematuria, retention, other - Medication Medications: Active Medications Generic Name Dose Route Start Last Admin Trade Name Freq PRN Reason Stop Dose Admin Atorvastatin Calcium 40 mg 03/14/19 21:00 03/15/19 21:07 Lipitor PO 40 mg HS ALYSHA Administration Carvedilol 3.125 mg 03/14/19 09:00 03/16/19 05:27 Coreg PO 3.125 mg BID ALYSHA Administration Clopidogrel Bisulfate 25 mg 03/14/19 21:00 03/16/19 05:27 Plavix PO 25 mg HS ALYSHA Administration Clopidogrel Bisulfate 75 mg 03/14/19 09:00 03/15/19 08:29 Plavix PO 75 mg DAILY ALYSHA Administration Docusate Sodium 100 mg 03/14/19 09:00 03/16/19 05:29 Colace PO 100 mg BID ALYSHA Administration Duloxetine HCl 60 mg 03/14/19 21:00 03/15/19 21:07 Cymbalta PO 60 mg HS ALYSHA Administration Ferrous Sulfate 325 mg 03/15/19 08:00 03/15/19 08:29 Feosol PO 325 mg Q2DAYS@0800 ALYSHA Administration Sodium Chloride 1,000 mls @ 100 mls/hr 03/16/19 06:00 03/16/19 05:24 Normal Saline 0.9% IV 1,000 mls .Q10H ALYSHA Administration Isosorbide Mononitrate 60 mg 03/14/19 09:00 03/16/19 05:29 Imdur PO 60 mg DAILY ALYSHA Administration Latanoprost 1 drop 03/14/19 21:00 03/15/19 21:05 Xalatan 0.005% Ophth Soln EA EYE 1 drp HS ALYSHA Administration Methylcellulose 1,000 mg 03/14/19 09:00 03/16/19 05:26 Citrucel PO 1,000 mg DAILY ALYSHA Administration Pantoprazole Sodium 40 mg 03/14/19 09:00 03/16/19 05:29 Protonix PO 40 mg BID ALYSHA Administration Probenecid 500 mg 03/14/19 09:00 03/16/19 05:26 Benemid PO 500 mg BID ALYSHA Administration Sodium Chloride 10 ml 03/13/19 23:06 03/15/19 08:30 Flush - Normal Saline IVF 10 ml Q12HR PRN Administration Saline Flush Spironolactone 25 mg 03/14/19 08:00 03/15/19 08:29 Aldactone PO 25 mg QAM-WM ALYSHA Administration Terazosin HCl 10 mg 03/14/19 21:00 03/15/19 21:07 Hytrin PO 10 mg HS ALYSHA Administration Timolol Maleate 1 drop 03/14/19 09:00 03/16/19 05:30 Timoptic 0.5% Ophth Soln EA EYE 1 drop BID ALYSHA Administration - Exam Neck: negative: supple, symmetric, no JVD, no thyromegaly, no lymphadenopathy, no carotid bruit, JVD Heart: negative: RRR, no murmur, no gallops, no rubs, normal peripheral pulses, irregular, diminshed peripheral pulses, murmur present, II/IV, III/IV Respiratory: negative: CTAB, no wheezes, no rales, no ronchi, normal chest expansion, no tachypnea, normal percussion, rales, rhonchi, tachypneic, wheezes Extremeties - other findings: left groin dressing intact, pedal pulse present bilaterally Hosp A/P (1) Exertional angina Code(s): I20.8 - OTHER FORMS OF ANGINA PECTORIS Status: Acute (2) A-fib Code(s): I48.91 - UNSPECIFIED ATRIAL FIBRILLATION Status: Chronic Qualifiers: Atrial fibrillation type: persistent Qualified Code(s): I48.1 - Persistent atrial fibrillation (3) BPH (benign prostatic hyperplasia) Code(s): N40.0 - BENIGN PROSTATIC HYPERPLASIA WITHOUT LOWER URINRY TRACT SYMP Status: Chronic Qualifiers: Lower urinary tract symptom presence: symptoms absent Qualified Code(s): N40.0 - Benign prostatic hyperplasia without lower urinary tract symptoms (4) CAD (coronary artery disease) Code(s): I25.10 - ATHSCL HEART DISEASE OF [place] CORONARY ARTERY W/O ANG PCTRS Status: Chronic Qualifiers: Coronary Disease-Associated Artery/Lesion type: bypass graft Associated angina: with stable angina - Plan s/p cardiac cath, recommend medical management. will continue current tx. replace electrolytes
[2019-03-16] MEDS: Spironolactone 25 MG TAB PO SCH (10:52)
--- NOTE | 2019-03-16 16:05 | PQF ---
CLINICAL DOCUMENTATION IMPROVEMENT CLARIFICATION FORM: ICD-10 Updated PLEASE DO AN ADDENDUM TO THE PROGRESS NOTE WITH ANY DOCUMENTATION UPDATES OR ADDITIONS AND CARRY THROUGH TO DC SUMMARY. THANK YOU. DATE: 03/16/2019 ATTN: Dr. aKmara Please exercise your independent, professional judgment in responding to the clarification form. Clinical indicators are provided on the bottom of this form for your review Please check appropriate box(s): HEART FAILURE: A. TYPE: [ x ] Systolic / HFrEF [ ] Diastolic / HFpEF [ ] Combined Systolic / Diastolic [ ] Other diagnosis [ ] Unable to determine In addition, please specify: Present on Admission (POA): [ x ] Yes [ ] No [ ] Unable to determine For continuity of documentation, please document condition throughout progress notes and discharge summary. Thank You. CLINICAL INDICATORS - SIGNS / SYMPTOMS / LABS PN 03/14: CHF . 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 Atrial Fib. CHF. Pacemaker 2016 TREATMENT: MAR: Order 03/13: Coreg 3.125 mg po BID MAR: Order 03/13-03/15: Lasix 40 mg po Thank you, Chantell (This form is maintained as a part of the permanent medical record) 2014 [employer]. All Rights Reserved Chantell Gimenez RN, BSN [email or web address] Office: [phone] [facility]
[2019-03-16 16:17] VITALS: BP 149/68; TEMP 98
[2019-03-16] MEDS ORDERED: Bisacodyl 5 MG TAB PO SCH (16:45)
--- NOTE | 2019-03-16 16:55 | PRG ---
DATE OF SERVICE: 03/16/2019 Mr. Null is doing okay. Discussed the cardiac catheterization findings with him. He has a patent internal mammary to the LAD, patent vein graft to the right coronary artery, patent stent in the obtuse marginal and ramus branch. There is some calcified plaque approximately 50% proximal to the stented area that looks like not a good area to be intervened on. The patient should be treated medically. He will be released back to the alf and resumed the Coumadin. He only got one dose of aspirin. We will not continue that. We will continue clopidogrel 75 mg a day. He is going to follow up with the physicians who were taking care of him in [place] next week. Job ID: [id number] MTDD
[2019-03-16] MEDS ORDERED: Warfarin Sodium 2.5 MG TAB PO SCH (17:00)
--- NOTE | 2019-03-17 04:32 | DIS ---
DATE OF ADMISSION: 03/14/2019 DATE OF DISCHARGE: 03/16/2019 DISCHARGE DIAGNOSES: As of the followin. Jyx-GO-ejcdmlsbt myocardial infarction. 2. Exertional angina. 3. Atrial fibrillation, chronic anticoagulation. 4. Chest pain. 5. BPH. 6. Coronary artery disease. 7. Congestive heart failure, systolic, compensated. HOSPITAL COURSE: The patient is a 73-year-old male, who initially presented to the hospital with complaints of chest pain. The patient had a cardiac stent placed about 2 months ago [address] [facility]. Cardiology was consulted. Upon review of the records, initially patient per Cardiology's recommendation was asked to transfer to [facility]. However, due to bed issues, the patient was unable to be transferred. We did get records from [facility] and upon evaluation, he underwent another cardiac cath on 03/14, which indicated he had a patent ENCISO to LAD, he had a patent stent to the ramus, he had a patent SVG RCA stent. He did have approximately 50% calcification of the circumflex ostial and approximately 50% ramus to ostium. His EF was 40%. Recommended medical therapy. The patient was put on Ranexa and he will be discharged back to retirement. HOME MEDICATIONS: Home medications will be as of the followin. Iron 325 every two days. 2. Clopidogrel 75 mg at bedtime. 3. Carvedilol 3.125 p.o. b.i.d. 4. Lipitor 40 mg at bedtime. 5. Warfarin 2.5 daily. 6. Ranexa 500 mg b.i.d. 7. Nitroglycerin 0.4 sublingual as needed. 8. Protonix 40 mg b.i.d. 9. Isosorbide 60 mg daily. 10. Lasix 40 mg b.i.d. 11. Duloxetine 60 mg at bedtime. 12. Spironolactone 25 mg p.o. daily. PHYSICAL EXAMINATION: VITAL SIGNS: Temperature of 98.0, 50, 18, 97% on room air, 149/68. GENERAL: He is awake, alert, and oriented x3. Does not appear in distress. CV: S1, S2 present. No murmurs, rubs, or gallops. ABDOMEN: Soft and nontender. Bowel sounds are present x2. EXTREMITIES: No edema. His left groin site appears stable and he has good pedal pulses. The patient will be again discharged home. 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 Job ID: [id number]
[2019-03-17] MEDS ORDERED: Potassium Chloride 20 MEQ TAB PO SCH (08:00)
[2019-03-17] MEDS ORDERED: Furosemide 20 MG TAB PO SCH (09:00)
--- NOTE | 2019-03-17 15:01 | EKG ---
Test Reason : Blood Pressure : / mmHG Vent. Rate : 050 BPM Atrial Rate : 051 BPM P-R Int : 000 ms QRS Dur : 164 ms QT Int : 512 ms P-R-T Axes : 000 094 262 degrees QTc Int : 466 ms Electronic ventricular pacemaker Confirmed by SABA LOPES ([id number]), editor in chief newspaper BHARAT AGUILAR ([id number]) on 03/17/2019 3:01:36 PM Referred By: Confirmed By:SABA LOPES
--- NOTE | 2019-03-21 02:10 | PQF ---
[employer] President Crystal Reports Winform ViewerARIELLA FLORES KARISHMA [id number] [facility] [id number] CLINICAL DOCUMENTATION CLARIFICATION FORM: POST DISCHARGE Addendum to original discharge summary date: ____ Late entry note date: __ DATE: 03/21/2019 ATTN:TAWANNA GARCIA MD Please exercise your independent, professional judgment in responding to the clarification form. Clinical indicators are provided on the bottom of this form for your review Please check appropriate box(s) to clarify if the following diagnosis has been ruled in or ruled out: NSTEMI [ ] Ruled in diagnosis [ ] Continue to treat [ x ] Resolved [ ] Ruled out diagnosis [ ] Cannot rule out diagnosis [ ] Other diagnosis [ ] Unable to determine In addition, please specify: Present on Admission (POA): [ x] Yes [ ] No [ ] Unable to determine For continuity of documentation, please document condition throughout progress notes and discharge summary. Thank You. CLINICAL INDICATORS - SIGNS / SYMPTOMS / LABS -Dih-XV-aropymjdxq myocardial infarction-DS, 03/16, ANILTONEYMADDI TAWANNA -Exertional angina-DS, 03/16, TAWANNA GARCIA -He did have approximately 50% calcification of the circumflex ostial and approximately 50% ramus to ostium-DS, 03/16, TAWANNA GARCIA -Troponin: 0.29H, Laboratory, 03/13 - RISK FACTORS -Congestive heart failure, systolic, compensated-DS, 03/16, ANILDENIS TAWANNA -3 vessel CAD-Cardiac cath report, 03/16 TREATMENTS -Left heart catheterization--Cardiac cath report, 03/16 -Aspirin.325mg-MAR, 03/13 (This form is maintained as a part of the permanent medical record) 2014 [employer]. All Rights Reserved [employer] President Crystal Reports Winform ViewerRakibarb Mckenzie [ not provided] [not provided] LINDSEYD
== END 2019-03-16 19:09 | disposition home or self-care (01) | DRG 281 ==
LOC: ERS 13:39 → 2SW 16:42 → OBSVTOIN 03-14 17:17 → EEVIPCON 03-14 17:17 → 2NO 03-14 21:07
PROVIDERS: ADMIT Internal Medicine; ATTEND Internal Medicine
PROC: 4A023N7 Measurement of Cardiac Sampling and Pressure, Left Heart, Percutaneous Approach (ICD-10-PCS; principal; 2019-03-16)
PROC: B2111ZZ Fluoroscopy of Multiple Coronary Arteries using Low Osmolar Contrast (ICD-10-PCS; 2019-03-16)
PROC: B2151ZZ Fluoroscopy of Left Heart using Low Osmolar Contrast (ICD-10-PCS; 2019-03-16)
DX: I25.118 Atherosclerotic heart disease of native coronary artery with other forms of angina pectoris (principal); I21.4 Non-ST elevation (NSTEMI) myocardial infarction; I50.22 Chronic systolic (congestive) heart failure; I13.0 Hypertensive heart and chronic kidney disease with heart failure and stage 1 through stage 4 chronic kidney disease, or unspecified chronic kidney disease; N40.0 Benign prostatic hyperplasia without lower urinary tract symptoms; E78.5 Hyperlipidemia, unspecified; E78.00 Pure hypercholesterolemia, unspecified; N18.9 Chronic kidney disease, unspecified; D63.1 Anemia in chronic kidney disease; K21.9 Gastro-esophageal reflux disease without esophagitis; M10.9 Gout, unspecified; G47.33 Obstructive sleep apnea (adult) (pediatric); I48.2 Chronic atrial fibrillation; Z79.01 Long term (current) use of anticoagulants; Z95.5 Presence of coronary angioplasty implant and graft; Z95.1 Presence of aortocoronary bypass graft; Z90.49 Acquired absence of other specified parts of digestive tract
CPT/HCPCS: 36415; 71045; 71046; 76942; 80048; 80053; 80061; 82550; 82728; 83540; 83550; 83880; 84484; 85025; 85610; 85730; 93005; 93459; 94760; 99152; 99153; C1769; J1644; J1756; J2001; J2250; J3010; J7050; Q9967

== ENCOUNTER 2019-10-08 13:01 | Observation (INO) | payer OTHER ==
[2019-10-08] MEDS ORDERED: Iopamidol 370 76% 100 ML VIAL ONE (13:40)
--- NOTE | 2019-10-08 13:59 | RAD ---
Chest AP view INDICATION: Intermittent chest pain COMPARISON: March 13, 2019 FINDINGS: Lungs: The lungs are clear Cardiac silhouette: Mild cardiomegaly is stable Pulmonary vasculature: Normal Pleural spaces: Costophrenic angles are excluded Upper abdomen: No abnormality seen. Osseous structures: No acute osseous abnormality. Additional findings: Single lead pacemaker is unchanged. Post-CABG changes stable. Small intra-artic ular bodies seen within the subcoracoid recess the right shoulder is stable. IMPRESSION: No acute cardiopulmonary abnormality. Stable exam.
[2019-10-08 14:33] LABS: #Lymphocytes 0.5 thou/uL (1.20-3.40); #Monocytes 0.4 thou/uL (0.11-0.59); #Neutrophils 1.9 thou/uL (1.40-6.50); %Eosinophils 1.3 % (0.0-10.0); %Lymphocytes 16.5 % (21.0-51.0); %Monocytes 13.3 % (0.0-10.0); %Neutrophils 68.9 % (42.0-75.0); Hemoglobin 9.9 g/dL (14.0-18.0); Mean Corpuscular HGB CONC 33.2 g/dL (32.0-36.0); Mean Corpuscular Hemoglobin 31.7 pg (27.0-31.0); Mean Corpuscular Volume 95.4 fL (78.0-98.0); Mean Platelet Volume 7.9 fL (7.4-10.4); Platelet Count 88 thou/uL (130-400); RBC Distribution Width 19.4 % (11.5-14.5); Red Blood Cell (RBC) Count 3.12 mill/uL (4.70-6.10); White Blood Cell (WBC) Count 2.8 thou/uL (4.8-10.8)
[2019-10-08 14:52] LABS: ALT (SGPT) 23 U/L (8-55); AST (SGOT) 27 U/L (5-34); Alkaline Phosphatase 169 U/L (40-110); Anion Gap 11 mmol/L (10-20); BUN (Urea Nitrogen) 24 mg/dL (8.4-25.7); Bilirubin, Total 0.7 mg/dL (0.2-1.2); Calc. Creatinine Clearance 0 mL/min (70-130); Calcium 9.2 mg/dL (7.8-10.44); Carbon Dioxide 28 mmol/L (23-31); Chloride 102 mmol/L (98-107); Estimated GFR-MDRD 72; Globulin 3.5 g/dL (2.4-3.5); Glucose 98 mg/dL (83-110); Lipase 105 U/L (8-78); Protein, Total 7.5 g/dL (5.8-8.1); Sodium 136 mmol/L (136-145)
--- NOTE | 2019-10-08 15:32 | CT ---
CTA Angio Chest W WO Con 10/08/2019 1:56 PM Indication: Chest pain rule out malignancy Technique: Multiple CTA images were obtained of the thorax with IV contrast. 3-D rendering: MIP esdras nstructed images were created and reviewed. Comparison: No relevant prior studies available. Findings: Pulmonary arteries: No central or segmental pulmonary embolus is evident. Heart and Aorta: There is moderate cardiomegaly. There is a pacemaker in place. There is postsurgica l change of a prior CABG. There are dense calcifications involving the coronary arteries and thoracic aorta. Mediastinum:There are calcified lymph nodes within the right hilar region and mediastinum. Lungs:There is moderate scattered emphysema. There are areas of subsegmental volume loss involving th e lingula and both lower lobes. There are areas of more central infrahilar groundglass opacity in the right lower lobe without wesley consolidation. Pleural space: Clear. Upper Abdomen: There are calcified granuloma within the spleen. There is mild hypertrophy of the adr enal glands, left greater than right. Osseous Structures: There is scattered degenerative and osteoarthritic change present. No acute frac ture or subluxation demonstrated. Soft tissues:There is bilateral male gynecomastia Other findings:None. Impression: 1. No central or segmental pulmonary embolus. 2. Areas of groundglass opacity in the right lower lobe is suspicious for developing pneumonitis. Thi s can be related to infection, inflammation or mild aspiration. 3. Moderate cardiomegaly without evidence of cardiac decompensation. 4. Moderate emphysema. 5. Findings of prior granulomatous disease
[2019-10-08] MEDS ORDERED: Morphine 4 MG/ML VIAL ONE (15:52)
[2019-10-08] MEDS ORDERED: Ondansetron PF 4 MG/2 ML Vial ONE (15:52)
--- NOTE | 2019-10-08 16:50 | PDOC.FPRHP ---
- History of Present Illness Chief Complaint: chest pain History of Present Illness: 74yo AAM with h/o CAD s/p 2v CABG in 2017, CHF, leukemia currently undergoing tx [facility]. Pt states sxs have been ongoing for about 1 wk with episodes of L sided, pressure-like chest pain, Rated 7/10, radiating to neck, and usually lasting about 3 hours. Today's pain started at 0300 and did not resolve in ED until morphine was given at approx 1500. No associated dyspnea, diaphoresis, n/v, abd pain, dizziness/lightheadedness. No provoking factors and no alleviating factors. Does not change with administration of nitro. States pain is different than previous episodes associated with GA's, stents, and CABG. During undergoing Leukoemia tx. He takes PO chemotherapy every morning and weekly shots. ED Course: Morphine, zofran CTA- no PE, possible developing pneumonitis. - Allergies/Adverse Reactions Allergies Allergy/AdvReac Type Severity Reaction Status Date / Time No Known Allergies Allergy Verified 10/08/19 20:54 - Home Medications Medication Instructions Recorded Confirmed Type Carvedilol 3.125 mg PO BID 01/29/19 10/08/19 History DULoxetine HCl 30 mg PO HS 01/29/19 10/08/19 History Ferrous Sulfate [Feosol] 325 mg PO Q2DAYS 01/29/19 10/08/19 History Furosemide [Lasix] 80 mg PO BID 01/29/19 10/08/19 History Isosorbide Mononitrate [Isosorbide 30 mg PO DAILY 01/29/19 10/08/19 History Mononitrate ER] Latanoprost/Pf [Latanoprost 0.005% 1 drop OP HS 01/29/19 10/08/19 History Eye Drop] Spironolactone 25 mg PO DAILY 01/29/19 10/08/19 History Terazosin HCl 10 mg PO HS 01/29/19 10/08/19 History Timolol Maleate [Timolol Maleate 1 drop EA EYE BID 01/29/19 10/08/19 History 0.5% Ophth SolN] Acetaminophen [Tylenol] 650 mg PO Q4H PRN 07/13/19 10/08/19 History Omeprazole 20 mg PO DAILY 07/13/19 10/08/19 History Calcium Carbonate + Vit D 1 tab PO QAM-WM tab 07/20/19 10/08/19 Rx [Caltrate 600 + Vit D] Acyclovir 400 mg PO BID 10/08/19 10/08/19 History Allopurinol [Zyloprim] 300 mg PO DAILY 10/08/19 10/08/19 History Aspirin [Ecotrin] 81 mg PO DAILY 10/08/19 10/08/19 History Lactulose 30 ml PO BID 10/08/19 10/08/19 History Posaconazole [Noxafil] 300 mg PO QAM 10/08/19 10/08/19 History Rosuvastatin [Crestor] 20 mg PO HS 10/08/19 10/08/19 History Venetoclax [Venclexta] 70 mg PO QAM 10/08/19 10/08/19 History Warfarin Sodium [Coumadin] 2.5 mg PO DAILY 10/08/19 10/08/19 History - History PMHx: ZECHARIAH, A fib, BPH, CHF, Glaucoma, Myelodysplastic Leukemia, CAD, HLD, HTN PSHx: Cath 2016, Double Bypass 2016, Remote hx of stents x2, Galbladder 10 years ago, Pacemaker 2016 FHx: Mom- GARRIDO (76, ), Sister & Dad- DM Social: No smoking, alcohol, or illicit drugs currently. Previously smoked Marijuana and cocaine, and previous tob use; stopped in 1998 when first incarcerated. - Review of Systems General: denies: fever/chills, weight/appetite/sleep changes, night sweats, fatigue Eyes: denies: vision changes ENT: denies: nasal congestion, rhinorrhea Respiratory: denies: cough, congestion, shortness of breath Cardiovascular: reports: chest pain. denies: palpitation, edema, orthopnea Gastrointestinal: reports: constipation (chronic). denies: nausea, vomiting, diarrhea, abdominal pain Genitourinary: reports: other (BPH sometimes difficult to urinate). denies: incontinence, dysuria Skin: denies: rashes, lesions Musculoskeletal: denies: pain, tenderness Neurological: denies: numbness, syncope, weakness - Vital signs BP: 119/57 HR: 60 RR: 21 Tmax: 98.0 Pox: 99% on RA Wt: 105.23kg - Physical Exam Constitutional: NAD, awake, alert and oriented, well developed HEENT: EOMI, conjunctiva clear, MMM Neck: supple, trachea midline Chest: no-tender to palpation Heart: RRR, normal S1/S2, pulses present, no edema -Heart: 2/6 ROOSEVELT Lungs: CTAB, no respiratory distress, good air movement, no rales/rhonchi, no wheezing Abdomen: soft, bowel sounds present, other (states diffusely mild TTP, no rebound or guarding. negative leija and mcburney.) Musculoskeletal: normal structure, normal tone Neurological: no focal deficit Skin: no rash/lesions, other (well-healed midline sternotomy scar and well- healed open hernandez scar) Psychiatric: normal mood and affect, good judgment and insight, intact recent and remote memory FMR H&P: Results - Labs Result Diagrams: 10/08/19 14:19 10/08/19 14:19 Lab results: WBC 2.8 thou/uL (4.8-10.8) L 10/08/19 14:19 Hgb 9.9 g/dL (14.0-18.0) L 10/08/19 14:19 Hct 29.7 % (42.0-52.0) L 10/08/19 14:19 MCV 95.4 fL (78.0-98.0) 10/08/19 14:19 Plt Count 88 thou/uL (130-400) L 10/08/19 14:19 Neutrophils % 68.9 % (42.0-75.0) 10/08/19 14:19 Sodium 136 mmol/L (136-145) 10/08/19 14:19 Potassium 5.0 mmol/L (3.5-5.1) 10/08/19 14:19 Chloride 102 mmol/L (98-107) 10/08/19 14:19 Carbon Dioxide 28 mmol/L (23-31) 10/08/19 14:19 BUN 24 mg/dL (8.4-25.7) 10/08/19 14:19 Creatinine 1.19 mg/dL (0.7-1.3) 10/08/19 14:19 Glucose 98 mg/dL (83-110) 10/08/19 14:19 Calcium 9.2 mg/dL (7.8-10.44) 10/08/19 14:19 Total Bilirubin 0.7 mg/dL (0.2-1.2) 10/08/19 14:19 AST 27 U/L (5-34) 10/08/19 14:19 ALT 23 U/L (8-55) 10/08/19 14:19 Alkaline Phosphatase 169 U/L (40-110) H 10/08/19 14:19 Serum Total Protein 7.5 g/dL (5.8-8.1) 10/08/19 14:19 Albumin 4.0 g/dL (3.4-4.8) 10/08/19 14:19 Lipase 105 U/L (8-78) H 10/08/19 14:19 - EKG Interpretation EKG: V-paced, no acute changes. - Radiology Interpretation Chest x-ray Status: report reviewed by me (no acute CPP) CT scan - chest Status: report reviewed by me (negative PE. Ground class RLL suggestive of pneumonitis, cardiomegaly, emphysema, previous granulomatous disease) FMR H&P: A/P - Problem List (1) Atypical chest pain Current Visit: Yes Status: Acute Code(s): R07.89 - OTHER CHEST PAIN (2) Myelodysplastic syndrome Current Visit: No Status: Chronic Code(s): D46.9 - MYELODYSPLASTIC SYNDROME , UNSPECIFIED (3) BPH (benign prostatic hyperplasia) Current Visit: No Status: Chronic Priority: Low Code(s): N40.0 - BENIGN PROSTATIC HYPERPLASIA WITHOUT LOWER URINRY TRACT SYMP Qualifiers: Lower urinary tract symptom presence: symptoms absent Qualified Code(s): N40.0 - Benign prostatic hyperplasia without lower urinary tract symptoms (4) CAD (coronary artery disease) Current Visit: Yes Status: Chronic Priority: Medium Code(s): I25.10 - ATHSCL HEART DISEASE OF [place] CORONARY ARTERY W/O ANG PCTRS (5) CHF (congestive heart failure) Current Visit: No Status: Chronic Priority: Medium Code(s): I50.9 - HEART FAILURE, UNSPECIFIED Qualifiers: Heart failure type: unspecified Heart failure chronicity: chronic Qualified Code(s): I50.9 - Heart failure, unspecified - Plan 74yo AAM with h/o CAD s/p 2v CABG in 2017, CHF, leukemia currently undergoing tx [facility] #Atypical chest pain - L-sided, pressure, radiating to neck, 7/10 at max and now 2/10 relieved with morphine - sxs ongoing for past week off and on. Non exertional, not relieved by nitro - Heart score 5 - Cardiac Cath 02/2019 -50% calcified circumflex, 50% calcifeid at ramus at ostium, EF 40% - Initial trop 0.019, will trend - EKG - V-paced, no acute changes - CTA negative PE, RLL pneumonitis, cardiomegaly, emphysema, previous granulomatous disease - VSS, nitro prn, monitor on tele - likely stable angina - Stress in AM #CAD s/p 2v CABG - CABG 2016 - cont home meds, medically optimized - per above #BPH - on terazosin per pt, will add flomax as pt with sxs #Leukemia - undergoing tx, will cont home meds - pancytopenia stable #HFrEF - cont home meds #HTN - cont home meds #H/o Afib - Pacemaker, cont warfarin and home meds Code: Full PCP: [facility] -[facility] IVF: SL Diet: HH VTE: SCDs Disposition/LOS: Admit to tele obs, stress in AM. Expected LOS <48hrs. FMR H&P: Upper Level - Plan Date/Time: 10/08/19 1650 PCP: Ke HPI: Patient comes in for 7/10 chest pain on left side of chest radiating up to his neck which has been going on for about 1 week. Nothing specific makes it better or worse. He states the pain lasts about 3 hours when it comes on and resolved with morphine in the ED. He takes chemotherapy every morning. He denies fevers. He has had some chills. Denies SOB. Denies weakness or malaise. He states this chest pain feels different than previous episodes when he had cardiac disease. PHYSICAL EXAMINATION: General: NAD, alert and oriented x3 HEENT: PERRLA, EOMI, normal sclera, oropharynx without erythema or exudate Neck: Supple. Full ROM. Heart/Cardiovascular System: RRR, Cap refill < 3 seconds, no rub, no murmur, keloid over surgical site no induration or erythema Lungs/Respiratory System: CTA-B, no resp distress Abdomen/Gastro-Intestinal System: normal bowel sounds, nontender Extremities: Warm extremities. No cyanosis or edema Neuro: No gross deficits appreciated. CN 2-12 grossly intact Psychiatry: Awake, Alert and cooperative with exam Skin: no rashes, ulcers Musculoskeletal: Full ROM A/P: # Chest Pain r/o ACS, Suspect stable angina, Hx CAD s/p CABG - EKG V-paced, Trop 0.17, no Sgarbossa criteria - Pain currently resolved, CTA neg for PE - Cath Feb 2019 50% calcified circumflex, 50% calcified at ramus at ostium, EF 40% - Trend trops overnight. - Consider pneumonitis # Myelodysplastic Leukemia, chronic anemia - Increased risk for infection, on chemo - Home meds # Chronic A fib # HFrEF - EF 40% on cath in Mar 12 # Gout, GERD, HTN, Glaucoma - Home meds Addendum - Attending - Attending Attestation Date/Time: 10/08/192112 I personally evaluated the patient and discussed the management with Dr. Bustos/ Gonzalo I agree with the History, Examination, Assessment and Plan documented above with any addition or exceptions noted below. 74 yo AAM PMH CAD s/p CABG and PCI stenting. Presents with intermittent CP x1 week that worsened starting at 0300 on DOS. Pain relieved only with morphine. Exam unremarkable. Labs at baseline. Trop neg x2 EKG showed V pace no ST changes. CXR negative. Admit for ACS r/o. Given cath that showed 40% stenosis in 2018, will perform NM stress test tomorrow. If positive, cardiology consultation. Pancytopenia stable.
[2019-10-08 18:19] LABS: Bilirubin Negative (Negative); Blood, Urine Negative (Negative); Clarity Clear (Clear); Glucose, Urine (Dipstick) Normal (Negative); Leukocyte Negative Leu/uL (Negative); Nitrite Negative (Negative); Protein, Urine (Dipstick) Negative (Neg-Trace); Urobilinogen Normal mg/dL (Less than 2)
[2019-10-08 18:43] LABS: Troponin I 0.026 ng/mL (< 0.028)
[2019-10-08] MEDS ORDERED: Calcium Carbonate 500 MG ChewTAB PO PRN (20:33)
[2019-10-08] MEDS ORDERED: Nitroglycerin 0.4 MG TAB (25 Tab Bottle) SL PRN (20:33)
[2019-10-08] MEDS ORDERED: Acetaminophen 325 MG TAB PO PRN (20:33)
[2019-10-08] MEDS ORDERED: Ferrous Sulfate 325 MG TAB PO SCH (21:00)
[2019-10-08] MEDS ORDERED: Rosuvastatin 20 MG TAB PO SCH (21:00)
[2019-10-08] MEDS ORDERED: Latanoprost 0.005% Ophth Soln 2.5 ml Bottle EA EYE SCH (21:00)
[2019-10-08] MEDS ORDERED: DULoxetine 30 MG CAP PO SCH (21:00)
[2019-10-08] MEDS ORDERED: Terazosin HCl 5 MG CAP PO SCH (21:00)
[2019-10-08 21:08] LABS: INR-International Normal Ratio 1.1; Prothrombin Time 14.1 SEC (12.0-14.7)
[2019-10-08 21:16] LABS: Cardiac Risk 2.3 (Less than 4.5)
[2019-10-08 21:27] LABS: Troponin I 0.033 ng/mL (< 0.028)
[2019-10-08 21:29] VITALS: BMI 31.8
[2019-10-08] MEDS ORDERED: Warfarin Sodium 2.5 MG TAB PO SCH (21:30)
[2019-10-08] MEDS: Acyclovir 400 mg Tablet PO SCH (22:19)
[2019-10-08] MEDS: Timolol 0.5% Ophth Soln 5 ml Bottle EA EYE SCH (22:20)
[2019-10-08] MEDS: Furosemide 40 MG TAB PO SCH (22:23)
[2019-10-09 00:16] LABS: Troponin I 0.028 ng/mL (< 0.028)
[2019-10-09 05:05] VITALS: TEMP 98.3
--- NOTE | 2019-10-09 06:53 | PDOC.FM ---
- Subjective Subjective: Doing well this morning, no acute events overnight. States pain still present 2/ 10 but very mild, still L-sided pressure. No SOB, n/v, diaphoresis. Tolerating PO well. Eager for stress this AM. - Objective MAR Reviewed: Yes Vital Signs & Weight: Vital Signs (12 hours) Temp Pulse Resp BP BP Pulse Ox 10/09/19 04:19 98.3 F 66 12 115/59 L 96 10/08/19 23:30 98.5 F 60 14 135/65 96 10/08/19 22:20 61 140/64 10/08/19 20:23 97.6 F 60 20 172/75 H 98 Weight Weight 101.514 kg I&O: 10/07/19 10/08/19 10/09/19 06:59 06:59 06:59 Intake Total 750 Output Total 1700 Balance -950 Result Diagrams: 10/08/19 14:19 10/08/19 14:19 EKG Reviewed by me: Yes (Tele: Paced) Phys Exam - Physical Examination Constitutional: NAD (resting comfortably, good spirits) HEENT: moist MMs Neck: supple Respiratory: no wheezing, no rales, no rhonchi, clear to auscultation bilateral Cardiovascular: RRR, no significant murmur, no rub Gastrointestinal: soft, non-tender, no distention, positive bowel sounds Musculoskeletal: no edema Neurological: moves all 4 limbs Psychiatric: normal affect, A&O x 3 Dx/Plan (1) Atypical chest pain Code(s): R07.89 - OTHER CHEST PAIN Status: Acute (2) Myelodysplastic syndrome Code(s): D46.9 - MYELODYSPLASTIC SYNDROME, UNSPECIFIED Status: Chronic (3) BPH (benign prostatic hyperplasia) Code(s): N40.0 - BENIGN PROSTATIC HYPERPLASIA WITHOUT LOWER URINRY TRACT SYMP Status: Chronic Qualifiers: Lower urinary tract symptom presence: symptoms absent Qualified Code(s): N40.0 - Benign prostatic hyperplasia without lower urinary tract symptoms (4) CAD (coronary artery disease) Code(s): I25.10 - ATHSCL HEART DISEASE OF [place] CORONARY ARTERY W/O ANG PCTRS Status: Chronic (5) CHF (congestive heart failure) Code(s): I50.9 - HEART FAILURE, UNSPECIFIED Status: Chronic Qualifiers: Heart failure type: unspecified Heart failure chronicity: chronic Qualified Code(s): I50.9 - Heart failure, unspecified - Plan Plan: 74yo AAM with h/o CAD s/p 2v CABG in 2017, CHF, leukemia currently undergoing tx presents from [facility] for atypical chest pain #Atypical chest pain - L-sided, pressure, radiating to neck, 7/10 at max, relieved by morphine, now 2 /10 since admit - sxs ongoing for past week off and on. Non exertional, not relieved by nitro - Heart score 5 - Cardiac Cath 02/2019 -50% calcified circumflex, 50% calcifeid at ramus at ostium, EF 40% - Trop 0.019 -> 0.026 -> 0.033 -> 0.028 - EKG - V-paced, no acute changes. No acute events on tele. - CTA negative PE, RLL pneumonitis, cardiomegaly, emphysema, previous granulomatous disease - VSS, nitro prn, monitor on tele - likely stable angina - Stress this AM pending #CAD s/p 2v CABG - CABG 2017 - cont home meds, medically optimized - per above #BPH - on terazosin, will change to flomax and add proscar. Pt had Wilson placed yesterday. Will attempt to remove with bladder training. #Leukemia - undergoing tx, cont home meds - pancytopenia stable #HFrEF - cont home meds #HTN - cont home meds #H/o Afib - Pacemaker, cont warfarin and home meds - INR 1.1, subtherapeutic. Will increase warfain dose. Needs continuted monitoring and adjustment as OP. Code: Full PCP: [facility] IVF: SL Diet: HH VTE: SCDs Disposition/LOS: Admit to tele obs, pain improved and stable, stress pending. Expected LOS < 48hrs. Addendum - Attending - Attending Attestation Date/Time: 10/09/19 1102 I personally evaluated the patient and discussed the management with Dr. Bustos. I agree with the History, Examination, Assessment and Plan documented above with any addition or exceptions noted below.
[2019-10-09] MEDS ORDERED: Finasteride 5 MG TAB PO SCH (09:00)
[2019-10-09] MEDS ORDERED: Allopurinol 100 MG TAB PO SCH (09:00)
[2019-10-09] MEDS ORDERED: Simethicone Chewable 80 MG TAB PO SCH (09:00)
[2019-10-09] MEDS ORDERED: Spironolactone 25 MG TAB PO SCH (09:00)
[2019-10-09] MEDS ORDERED: VENETOCLAX PO SCH (09:00)
[2019-10-09] MEDS ORDERED: Aspirin 81 mg Enteric Coated Tablet PO SCH (09:00)
[2019-10-09] MEDS ORDERED: Posaconazole 300 MG PO SCH (09:00)
[2019-10-09] MEDS ORDERED: Tamsulosin HCl 0.4 MG CAP PO SCH (09:00)
--- NOTE | 2019-10-09 11:08 | NM ---
EXAM: CARDIAC SPECT HISTORY: Chest pain, coronary artery disease, CABG, stent, CHF, AICD, atrial fibrillation, dyslipidem ia, hypertension TECHNIQUE: A myocardial perfusion scan was performed using the single isotope 1 day protocol with mian hnetium 99m sestamibi. [10 mCi] was injected intravenously for the rest exam followed by 30 mCi for the stress study. Pharmacologic stress with adenosine was monitored and interpreted by Nano Valdez, nurse practitioner FINDINGS: Homogeneous tracer distribution is seen in the myocardial segments on stress and rest image s without fixed or reversible defects. Gated SPECT LVEF: 47% Wall motion exam: No significant segmental wall motion abnormalities are identified. IMPRESSION: No evidence of reversible ischemia.
[2019-10-09] MEDS: Acyclovir 400 mg Tablet PO SCH (11:31)
[2019-10-09] MEDS: Timolol 0.5% Ophth Soln 5 ml Bottle EA EYE SCH (11:32)
[2019-10-09] MEDS: Furosemide 40 MG TAB PO SCH (11:33)
[2019-10-09 12:48] VITALS: BP 150/65
[2019-10-09] MEDS ORDERED: hydrOXYzine 10 MG TAB PO SCH (13:00)
[2019-10-09] MEDS ORDERED: ADENOSINE 60 MG/20 ML VIAL ONE (16:14)
[2019-10-09] MEDS ORDERED: Warfarin Sodium 3 MG TAB PO SCH (17:00)
[2019-10-09] MEDS ORDERED: Warfarin Sodium 2.5 MG TAB PO SCH (17:00)
--- NOTE | 2019-10-10 13:38 | DIS ---
DATE OF ADMISSION: 10/08/2019 DATE OF DISCHARGE: 10/09/2019 RESIDENT: Damon Bustos MD ADMITTING ATTENDING: Slick Barker MD DISCHARGE ATTENDING: Nitin Man MD. CONSULTS: None. PROCEDURES: 1. Nuclear medicine stress test on 10/09/2019, demonstrating no evidence of reversible ischemia. 2. CTA on 10/08/2019, demonstrating no signs of pulmonary emboli, areas of ground-glass opacity in the right lower lobe suspicious for developing pneumonitis. Moderate cardiomegaly without evidence of cardiac decompensation. Moderate emphysema and findings of prior granulomatous disease. 3. Chest x-ray on 10/08/2019, demonstrating no acute cardiopulmonary process. PRIMARY DIAGNOSIS: Atypical chest pain. SECONDARY DIAGNOSES: 1. Coronary artery disease status post 2-vessel coronary artery bypass grafting. 2. BPH. 3. Leukemia. 4. Heart failure with reduced ejection fraction. 5. Hypertension. 6. History of atrial fibrillation. DISCHARGE MEDICATIONS: 1. Timolol eyedrops one drop each eye b.i.d. 2. Spironolactone 25 mg p.o. daily. 3. Latanoprost one drop nightly as directed. 4. Isosorbide mononitrate 30 mg p.o. daily. 5. Lasix 80 mg p.o. b.i.d. 6. Ferrous sulfate 325 mg p.o. q.2 days. 7. Cymbalta 30 mg p.o. at bedtime. 8. Coreg 3.125 mg p.o. b.i.d. 9. Prilosec 40 mg p.o. daily. 10. Tylenol 650 mg p.o. t.i.d. p.r.n. 11. Acyclovir 400 mg p.o. b.i.d. 12. Aspirin 81 mg p.o. daily. 13. Lactulose 30 mL p.o. b.i.d. 14. Noxafil 300 mg p.o. q.a.m. 15. Crestor 20 mg p.o. at bedtime. 16. Venetoclax 70 mg p.o. q.a.m. 17. Simethicone 80 mg p.o. daily. 18. Compazine 10 mg p.o. t.i.d. p.r.n. 19. Milk of magnesia 30 mL p.o. at bedtime p.r.n. 20. Allopurinol 300 mg p.o. daily. 21. Proscar 5 mg p.o. daily. 22. Flomax 0.4 mg p.o. daily. 23. Warfarin 3 mg p.o. at 1700. DISCONTINUED MEDICATIONS: 1. Warfarin 2.5 mg p.o. at bedtime. 2. Terazosin 10 mg p.o. daily. HISTORY OF PRESENT ILLNESS AND HOSPITAL COURSE: The patient is a 74-year-old male, currently incarcerated with history of coronary artery disease status post 2-vessel CABG in 2017, congestive heart failure, leukemia, who presents for atypical chest pain. He states this pain has been ongoing for approximately the past week. It waxes and wanes. He describes a left-sided pressure-like chest pain, rated 7/10 at its worst, radiating to his neck, usually lasting about 3 hours. He stated the pain prior to admission started early in the morning and did not resolve until he was given morphine in the emergency department. He had no associated dyspnea, diaphoresis, nausea, vomiting, abdominal pain, dizziness, lightheadedness. No provoking factors. No alleviating factors. It did not improve with nitroglycerin. He states this pain is different than the pain that he had when he had his myocardial infarctions, stents, and CABG. He is currently undergoing treatment for leukemia. In the emergency department, he was given morphine and Zofran with resolution of pain. A CTA was negative. EKG did not show any acute changes and his troponin was obtained. He was admitted to the floor for further evaluation and management. The patient was monitored on telemetry without any acute events. He has a HEART score of 5, mainly due to his chronic medical conditions. He had cardiac catheterization performed in February of 2019 per our records that showed a 50% calcified circumflex, 50% calcified at the ramus at the ostium and an EF of 40%. Troponins were trended and stayed stable. EKG showed a V-paced rhythm with no acute changes. Vital signs remained stable and chest pain did not return. He received a cardiac stress test on the morning of discharge that was within normal limits. The patient also complained of BPH symptoms and had a Wilson catheter placed in the emergency department. This was able to be removed at the day of discharge. The patient was transitioned from terazosin to Flomax and Proscar to help with his BPH symptoms and this will need to be followed as an outpatient. Regarding the patient's other chronic medical conditions, home medications were continued. The patient was then stable for discharge with a negative stress test and this chest pain likely noncardiac in nature. The patient was instructed to follow up with the [facility] as previously directed for his chronic medical conditions. Results and plan were discussed with the patient who voiced agreement and understanding of the plan. All questions were answered appropriately. The patient was then discharged back to the [facility]. DISPOSITION: Stable. DISCHARGE INSTRUCTIONS: 1. Location: [facility]. 2. Diet: Heart healthy. 3. Activity: As tolerated. 4. Followup: The patient should follow up with [facility] as previously directed. Job ID: [id number]
--- NOTE | 2019-10-13 10:22 | EKG ---
Test Reason : Blood Pressure : / mmHG Vent. Rate : 060 BPM Atrial Rate : 056 BPM P-R Int : 000 ms QRS Dur : 156 ms QT Int : 470 ms P-R-T Axes : 000 119 -62 degrees QTc Int : 470 ms Ventricular-paced rhythm Abnormal ECG Confirmed by CHRISSY SMITH MD ([id number]), graphics editor BHARAT AGUILAR ([id number]) on 10/13/2019 10:22:28 AM Referred By: Confirmed By:CHRISSY SMITH MD
== END 2019-10-09 16:45 | disposition home or self-care (01) ==
LOC: ERS 13:01 → 2SW 16:49
PROVIDERS: ADMIT Family Medicine; ATTEND Family Medicine
DX: R07.89 Other chest pain (principal); I25.10 Atherosclerotic heart disease of native coronary artery without angina pectoris; N40.0 Benign prostatic hyperplasia without lower urinary tract symptoms; C94.6 Myelodysplastic disease, not elsewhere classified; I11.0 Hypertensive heart disease with heart failure; I50.20 Unspecified systolic (congestive) heart failure; I48.20 Chronic atrial fibrillation, unspecified; G47.33 Obstructive sleep apnea (adult) (pediatric); E78.5 Hyperlipidemia, unspecified; M10.9 Gout, unspecified; K21.9 Gastro-esophageal reflux disease without esophagitis; J43.9 Emphysema, unspecified; Z87.891 Personal history of nicotine dependence; Z79.01 Long term (current) use of anticoagulants; Z79.82 Long term (current) use of aspirin; Z79.899 Other long term (current) drug therapy; Z95.0 Presence of cardiac pacemaker; Z95.1 Presence of aortocoronary bypass graft
CPT/HCPCS: 36415; 51703; 71045; 71275; 78452; 80053; 80061; 81003; 83690; 84443; 84484; 85025; 85610; 87086; 93005; 93017; 96374; 96375; A9500; G0378; J0153; J2270; J2405; Q9967